=== PATIENT | female | born 1985 | race Caucasian/White ===

== ENCOUNTER 2017-01-30 10:11 | Emergency (ER) | payer OTHER ==
[2017-01-30] MEDS ORDERED: Sodium Chloride 0.9% 10 ML Syringe FLUSH PRN (11:41)
[2017-01-30] MEDS ORDERED: Sodium Chloride 0.9% 1,000 ML IV ONE (11:43)
[2017-01-30] MEDS ORDERED: Acetaminophen 325 MG Tab PO ONE (11:43)
--- NOTE | 2017-01-30 11:56 | EDM.PDOC ---
ED HPI GENERAL MEDICAL PROBLEM - General Chief Complaint: Syncope Stated Complaint: 2 MONTHS PREG PASSED OUT Time Seen by Provider: 01/30/17 11:36 Source of Information: Reports: Patient History Limitations: Reports: No Limitations - History of Present Illness INITIAL COMMENTS - FREE TEXT/NARRATIVE: 31-year-old female presents for evaluation after having 2 syncopal episodes this morning. Patient reports this morning she was feeling very weak. She went downstairs to let out the dogs. She states that she sat down at the dining room table and woke up several minutes later with her head down on the table. She states that she got up and passed out for a second time from a standing position. The leaflets and it lasted about 15 minutes. She states when she woke up at that time she was diaphoretic. Her current symptoms including weakness, fatigue, increased warmth, ear pain, congestion, sore throat and a dry nonproductive cough. Patient has not taken her temperature but states that she feels warm. She states her cold symptoms started on Saturday but this has been the worst so far. She has been drinking plenty of fluids today. She only had a banana each day. The patient is approximately 7 weeks . She is not having major cramping. She reports some left lower abdominal pain described as a dull ache. She denies any vaginal bleeding. She reports some clear vaginal fluid, which she reports as normal for her. She is a . She saw her SMALL BUSINESS SALES REPRESENTATIVE provider about one week ago after having some sharp abdominal and back pain. She has an ultrasound scheduled for February 05. Her SMALL BUSINESS SALES REPRESENTATIVE provider is Dr. Guevara. Generalized Pain Score (Numeric/FACES): 7 - Related Data Allergies Allergy/AdvReac Type Severity Reaction Status Date / Time No Known Allergies Allergy Verified 01/30/17 10:52 Home Meds: Home Meds Docosahexanoic Acid [DHA] 100 mg PO DAILY 01/30/17 [History] Escitalopram [Lexapro] 10 mg PO DAILY 01/30/17 [History] Loratadine [Claritin] 10 mg PO DAILY 01/30/17 [History] Vit with Ca/FA/Iron [ Plus Iron] 1 tab PO DAILY 01/30/17 [ History] Past Medical History HEENT History: Reports: Impaired Vision Other HEENT History: wears eyeglasses Respiratory History: Reports: Bronchitis, Recurrent Genitourinary History: Reports: UTI, Recurrent SMALL BUSINESS SALES REPRESENTATIVE History: Reports: 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 Psychiatric History: Reports: Anxiety Dermatologic History: Reports: Eczema - Infectious Disease History Infectious Disease History: Reports: Chicken Pox Social & Family History - Tobacco Use Smoking Status *Q: Never Smoker Second Hand Smoke Exposure: No - Caffeine Use Caffeine Use: Reports: Coffee, Tea - Recreational Drug Use Recreational Drug Use: No ED ROS GENERAL - Review of Systems Review Of Systems: See Below Constitutional: Reports: Weakness, Fatigue, Diaphoresis. Denies: Fever HEENT: Reports: Other (nasal congestion) Respiratory: Reports: Cough (dry, non productive) GI/Abdominal: Denies: Abdominal Pain, Nausea, Vomiting : Reports: Other (denies any vaginal bleeding; reports vaginal discharge (no change from baseline)). Denies: Dysuria, Hematuria - Physical Exam Exam: See Below Exam Limited By: No Limitations General Appearance: Alert, WD/WN, No Apparent Distress Ears: Normal External Exam, Normal Canal, Hearing Grossly Normal, Normal TMs Throat/Mouth: Normal Inspection, Normal Lips, Normal Voice, No Airway Compromise Neck: Normal Inspection, Supple, Full Range of Motion, Lymphadenopathy (L), Lymphadenopathy (R), Tender Lateral Respiratory/Chest: No Respiratory Distress, Lungs Clear, Normal Breath Sounds Cardiovascular: Normal Peripheral Pulses, Regular Rate, Rhythm, No Murmur GI/Abdominal: Normal Bowel Sounds, Soft, Non-Tender (Female) Exam: Normal External Exam, Normal Speculum Exam, Normal Bimanual Exam, Vaginal Discharge (white, normal vaginal discharge ). No: Cervical Discharge, Products of Conception Neuro Exam (Abbreviated): Alert, Oriented, Normal Cognition Psychiatric: Normal Affect, Normal Mood Skin Exam: Warm, Dry, Normal Color Course - Vital Signs Last Recorded V/S: Last Vital Signs Temp 37.5 C 01/30/17 15:25 Pulse 83 01/30/17 16:00 Resp 18 01/30/17 16:00 BP 115/69 01/30/17 16:00 Pulse Ox 98 01/30/17 16:00 Orthostatic Blood Pressure [ 104/85 Standing] Orthostatic Blood Pressure [ 118/72 Sitting] Orthostatic Blood Pressure [ 121/71 Supine] - Orders/Labs/Meds Orders: Active Orders 24 hr Category Date Time Status Orthostatic Vital Signs [RC] ASDIRECTED Care 01/30/17 11:44 Active Peripheral IV Care [RC] . DIRECTED Care 01/30/17 11:41 Active OB Transvaginal [US] Stat Exams 01/30/17 12:57 Taken CULTURE STREP A CONFIRMATION [RM] Stat Lab 01/30/17 12:45 Results STREP SCRN A RAPID W CULT CONF [RM] Stat Lab 01/30/17 12:45 Results Peripheral IV Insertion Adult [OM.PC] Routine Oth 01/30/17 11:40 Ordered Labs: Laboratory Tests 01/30/17 01/30/17 01/30/17 Range/Units 10:50 10:50 10:50 WBC 7.79 (3.98-10.04) K/mm3 RBC 4.62 (3.98-5.22) M/mm3 Hgb 14.0 (11.2-15.7) gm/L Hct 41.5 (34.1-44.9) % MCV 89.8 (79.4-94.8) fl MCH 30.3 (25.6-32.2) pg MCHC 33.7 (32.2-35.5) g/dl RDW Std Deviation 39.1 (36.4-46.3) fL Plt Count 178 L (182-369) K/mm3 MPV 11.6 (9.4-12.3) fl Neutrophils % (Manual) 80 H (40-60) % Band Neutrophils % 7 (0-10) % Lymphocytes % (Manual) 5 L (20-40) % Atypical Lymphs % 0 % Monocytes % (Manual) 7 (2-10) % Eosinophils % (Manual) 1 (0.7-5.8) % Basophils % (Manual) 0 L (0.1-1.2) Platelet Estimate Adequate RBC Morph Comment Normal Sodium 136 (136-145) mEq/L Potassium 3.4 L (3.5-5.1) mEq/L Chloride 101 (98-107) mEq/L Carbon Dioxide 23 (21-32) mEq/L Anion Gap 15.4 H (5-15) BUN 8 (7-18) mg/dL Creatinine 0.8 (0.55-1.02) mg/dL Est Cr Clr Drug Dosing 116.74 mL/min Estimated GFR (MDRD) > 60 (>60) mL/min BUN/Creatinine Ratio 10.0 L (14-18) Glucose 102 (74-106) mg/dL Calcium 8.4 L (8.5-10.1) mg/dL Total Bilirubin 0.7 (0.2-1.0) mg/dL AST 15 (15-37) U/L ALT 18 (14-59) U/L Alkaline Phosphatase 58 (46-116) U/L C-Reactive Protein 1.3 H* (<1.0) mg/dL Total Protein 7.3 (6.4-8.2) g/dl Albumin 3.5 (3.4-5.0) g/dl Globulin 3.8 gm/dL Albumin/Globulin Ratio 0.9 L (1-2) HCG, Quant 95406.0 mIU/mL Urine Color (Yellow) Urine Appearance (Clear) Urine pH (5.0-8.0) Ur Specific [place] (1.005-1.030) Urine Protein (Negative) Urine Glucose (UA) (Negative) Urine Ketones (Negative) Urine Occult Blood (Negative) Urine Nitrite (Negative) Urine Bilirubin (Negative) Urine Urobilinogen (0.2-1.0) Ur Leukocyte Esterase (Negative) Urine RBC (0-5) /hpf Urine WBC (0-5) /hpf Ur Epithelial Cells (0-5) /hpf Urine Bacteria (FEW) /hpf Urine Mucus (FEW) /hpf /03/11 Range/Units 12:28 WBC (3.98-10.04) K/mm3 RBC (3.98-5.22) M/mm3 Hgb (11.2-15.7) gm/L Hct (34.1-44.9) % MCV (79.4-94.8) fl MCH (25.6-32.2) pg MCHC (32.2-35.5) g/dl RDW Std Deviation (36.4-46.3) fL Plt Count (182-369) K/mm3 MPV (9.4-12.3) fl Neutrophils % (Manual) (40-60) % Band Neutrophils % (0-10) % Lymphocytes % (Manual) (20-40) % Atypical Lymphs % % Monocytes % (Manual) (2-10) % Eosinophils % (Manual) (0.7-5.8) % Basophils % (Manual) (0.1-1.2) Platelet Estimate RBC Morph Comment Sodium (136-145) mEq/L Potassium (3.5-5.1) mEq/L Chloride (98-107) mEq/L Carbon Dioxide (21-32) mEq/L Anion Gap (5-15) BUN (7-18) mg/dL Creatinine (0.55-1.02) mg/dL Est Cr Clr Drug Dosing mL/min Estimated GFR (MDRD) (>60) mL/min BUN/Creatinine Ratio (14-18) Glucose (74-106) mg/dL Calcium (8.5-10.1) mg/dL Total Bilirubin (0.2-1.0) mg/dL AST (15-37) U/L ALT (14-59) U/L Alkaline Phosphatase (46-116) U/L C-Reactive Protein (<1.0) mg/dL Total Protein (6.4-8.2) g/dl Albumin (3.4-5.0) g/dl Globulin gm/dL Albumin/Globulin Ratio (1-2) HCG, Quant mIU/mL Urine Color Yellow (Yellow) Urine Appearance Clear (Clear) Urine pH 7.0 (5.0-8.0) Ur Specific [place] 1.015 (1.005-1.030) Urine Protein Trace H (Negative) Urine Glucose (UA) Negative (Negative) Urine Ketones Trace H (Negative) Urine Occult Blood Negative (Negative) Urine Nitrite Negative (Negative) Urine Bilirubin Negative (Negative) Urine Urobilinogen 0.2 (0.2-1.0) Ur Leukocyte Esterase Negative (Negative) Urine RBC Not seen (0-5) /hpf Urine WBC 0-5 (0-5) /hpf Ur Epithelial Cells 0-5 (0-5) /hpf Urine Bacteria Few (FEW) /hpf Urine Mucus Few (FEW) /hpf Meds: Medications Discontinued Medications Generic Name Dose Route Start Last Admin Trade Name Freq PRN Reason Stop Dose Admin Acetaminophen 650 mg 01/30/17 11:43 01/30/17 12:34 Tylenol PO 01/30/17 11:44 650 mg NOW ONE Administration Sodium Chloride 1,000 mls @ 999 mls/hr 01/30/17 11:43 01/30/17 12:35 Normal Saline IV 01/30/17 12:43 999 mls/hr ONETIME ONE Administration Sodium Chloride 10 ml 01/30/17 11:41 01/30/17 12:36 Saline Flush FLUSH 10 ml ASDIRECTED PRN Administration Keep Vein Open - Radiology Interpretation Free Text/Narrative:: transvaginal ultrasound impression per vrad: 1. single live intrauterine gestation with a gestational age of 6 weeks 4 days on a crown-rump length of 7 mm and an estimated due date of 09-21-17. Estimated due date based on LMP . Size correlates with dates. 2. 2.8 x 2.4 complex area in the right ovary that has peripheral hypervascularity and likely represents a corpuse luteum. - Re-Assessments/Exams Free Text/Narrative Re-Assessment/Exam: 01/30/17 15:24 Labs returned. White blood cell count is 7.79, hemoglobin 14.0 and platelets are 178. Sodium is 126, potassium is 3.4 and chloride is 101. Anion gap is 15.4 and glucose is 102. Creatinine 0.8. AST is 15, aLT is 18 and alkaline phosphatase is 58. CRP is slightly elevated at 1.3. HCG is 50,135. Strep is negative. Flu is needed. wet prep is negative for Trichomonas, yeast and bacterial vaginosis. I reviewed the labs and ultrasound and consult with the patient. We decided to forego a chest x-ray as her lungs were clear on auscultation and she has a normal white blood cell count. I feel she likely has a viral upper respiratory infection. FI feel her syncopal episode was likely caused by her , viral upper respiratory infection and dehydration. We will discharge her home at this time. Discharge instructions as documented. Departure - Departure Time of Disposition: 15:24 Disposition: Home, Self-Care 01 Condition: fair Clinical Impression: Viral upper respiratory infection, Dehydration, - Discharge Information Instructions: Dehydration, Adult, [id number], Upper Respiratory Infection, Adult, [id number] Referrals: Daisy Pérez PA-C [Primary Care Provider] - Casandra Guevara MD [Physician] - Forms: ED Department Discharge Additional Instructions: [id number] medications from the provided list as needed for symptom relief. make sure you are drinking plenty of fluids. Drink at least half of the body and ounces daily. Recommend water and Gatorade or Powerade. Rest. Do not overexert [id number]. Listen to your body. If you are not feeling well, sit down, rest in a cool place. Drink fluids and eat a healthy diet. Follow up with your SMALL BUSINESS SALES REPRESENTATIVE provider in the next one to 2 weeks for recheck. Please return to ER if your symptoms change or worsen. - My Orders Last 24 Hours: My Active Orders 01/30/17 11:40 Peripheral IV Insertion Adult [OM.PC] Routine 01/30/17 11:41 Peripheral IV Care [RC] . DIRECTED 01/30/17 11:44 Orthostatic Vital Signs [RC] ASDIRECTED 01/30/17 12:45 CULTURE STREP A CONFIRMATION [RM] Stat STREP SCRN A RAPID W CULT CONF [RM] Stat 01/30/17 12:57 OB Transvaginal [US] Stat - Assessment/Plan Last 24 Hours: My Active Orders 01/30/17 11:40 Peripheral IV Insertion Adult [OM.PC] Routine 01/30/17 11:41 Peripheral IV Care [RC] . DIRECTED 01/30/17 11:44 Orthostatic Vital Signs [RC] ASDIRECTED 01/30/17 12:45 CULTURE STREP A CONFIRMATION [RM] Stat STREP SCRN A RAPID W CULT CONF [RM] Stat 01/30/17 12:57 OB Transvaginal [US] Stat
[2017-01-30 16:08] VITALS: BP 115/69
--- NOTE | 2017-01-31 09:25 | US ---
First trimester obstetrical ultrasound: Multiple real-time images were obtained transvaginally. Comparison: No previous exam. Dates: LMP: LMP given as 12/13/16, ANN-MARIE 09/19/17, gestational age 6 weeks 6 days Current ultrasound: ANN-MARIE 09/21/17, gestational age 6 weeks 4 days Single intrauterine gestation is seen. pole and yolk sac are identified. Amniotic fluid volume is normal. No subchorionic hemorrhage is identified. Simple cyst noted within the right ovary believed to represent incidental corpus luteum cyst measuring about 3.3 cm. Impression: 1. Single intrauterine gestation. Dates as noted above. 2. No complicating process is seen on ultrasound exam. Agree with preliminary report issued by [employer] (preliminary report dictated on 01/30/17, 4:33 PM Central Time) Diagnostic code #2
== END 2017-01-30 16:00 | disposition home or self-care (01) ==
LOC: JD.ED 10:11
DX: O99.511 Diseases of the respiratory system complicating pregnancy, first trimester (principal); J06.9 Acute upper respiratory infection, unspecified; O99.281 Endocrine, nutritional and metabolic diseases complicating pregnancy, first trimester; E86.0 Dehydration; O99.341 Other mental disorders complicating pregnancy, first trimester; F41.9 Anxiety disorder, unspecified; Z3A.01 Less than 8 weeks gestation of pregnancy; Z79.899 Other long term (current) drug therapy
CPT/HCPCS: 36415; 76817; 80053; 81001; 84702; 85025; 86140; 87081; 87210; 87430; 87804; 87808; 96360; 99284; A9270; J7040; J7050; 99283

== ENCOUNTER 2017-09-12 18:58 | Inpatient (IN) | payer OTHER ==
[2017-09-12] MEDS ORDERED: Lactated Ringers 1,000 ML ONE (19:29)
[2017-09-12] MEDS ORDERED: Sodium Chloride 0.9% 10 ML Syringe FLUSH PRN (19:55)
[2017-09-12] MEDS ORDERED: Ondansetron 4 MG/2 ML SDV IVPUSH PRN (19:55)
[2017-09-12] MEDS: Lactated Ringers 1,000 ML IV SCH (20:00)
[2017-09-12] MEDS ORDERED: Lactated Ringers 1,000 ML IV SCH (20:00)
[2017-09-12] MEDS ORDERED: Oxytocin/Lactated Ringers 10 UNIT/1,000 ML BAG IV SCH (20:00)
[2017-09-12] MEDS ORDERED: fentaNYL 100 MCG/2 ML SDV EPIDUR PRN (22:14)
[2017-09-12] MEDS ORDERED: ePHEDrine 50 MG/ML SDV IVPUSH PRN (22:14)
[2017-09-12] MEDS ORDERED: Bupivacaine/fentaNYL/NS 100 ML Bag EPIDUR SCH (22:15)
--- NOTE | 2017-09-12 22:16 | PCM.PREANE ---
Preanesthetic Assessment - Anesthesia/Transfusion/Family Hx Anesthesia History: No Prior Anesthesia Family History of Anesthesia Reaction: No Transfusion History: No Prior Transfusion(s) Intubation History: Unknown - Review of Systems General: No Symptoms Pulmonary: No Symptoms Cardiovascular: No Symptoms Gastrointestinal: No Symptoms, Nausea Neurological: No Symptoms Other: Reports: Easy Bruising, Sinus Problem, Depression, Anxiety - Physical Assessment NPO Status Date: 09/12/17 NPO Status Time: 18:30 Pulse: 93 O2 Sat by Pulse Oximetry: 96 Respiratory Rate: 22 Blood Pressure: 131/89 Temperature: 37.6 C Height: 1.85 m Weight: 85.275 kg ASA Class: 2 Mental Status: Alert & Oriented x3 Airway Class: Mallampati = 2 Dentition: Reports: Normal Dentition, Caries Thyro-Mental Finger Breadths: 3 Mouth Opening Finger Breadths: 3 ROM/Head Extension: Full Lungs: Clear to Auscultation, Normal Respiratory Effort Cardiovascular: Regular Rate, Regular Rhythm, No Murmurs - Lab Values: Laboratory Last Values WBC 9.01 K/mm3 (3.98-10.04) 09/12/17 20:15 RBC 4.21 M/mm3 (3.98-5.22) 09/12/17 20:15 Hgb 13.2 gm/L (11.2-15.7) 09/12/17 20:15 Hct 38.6 % (34.1-44.9) 09/12/17 20:15 MCV 91.7 fl (79.4-94.8) 09/12/17 20:15 MCH 31.4 pg (25.6-32.2) 09/12/17 20:15 MCHC 34.2 g/dl (32.2-35.5) 09/12/17 20:15 RDW Std Deviation 43.4 fL (36.4-46.3) 09/12/17 20:15 Plt Count 183 K/mm3 (182-369) 09/12/17 20:15 MPV 12.0 fl (9.4-12.3) 09/12/17 20:15 Neut % (Auto) 71.7 % (34.0-71.1) H 09/12/17 20:15 Lymph % (Auto) 20.8 % (19.3-51.7) 09/12/17 20:15 [place] % (Auto) 6.8 % (4.7-12.5) 09/12/17 20:15 Eos % (Auto) 0.2 (0.7-5.8) L 09/12/17 20:15 Baso % (Auto) 0.2 % (0.1-1.2) 09/12/17 20:15 Neut # (Auto) 6.46 K/mm3 (1.56-6.13) H 09/12/17 20:15 Lymph # (Auto) 1.87 K/mm3 (1.18-3.74) 09/12/17 20:15 [place] # (Auto) 0.61 K/mm3 (0.24-0.36) H 09/12/17 20:15 Eos # (Auto) 0.02 K/mm3 (0.04-0.36) L 09/12/17 20:15 Baso # (Auto) 0.02 K/mm3 (0.01-0.08) 09/12/17 20:15 Above labs reviewed and noted. - Allergies Allergies/Adverse Reactions: Allergies Allergy/AdvReac Type Severity Reaction Status Date / Time No Known Allergies Allergy Verified 01/30/17 10:52 - Anesthesia Plan Pre-Op Medication Ordered: None - Acknowledgements Anesthesia Type Planned: Epidural Pt an Appropriate Candidate for the Planned Anesthesia: Yes Alternatives and Risks of Anesthesia Discussed w Pt/Guardian: Yes Pt/Guardian Understands and Agrees with Anesthesia Plan: Yes PreAnesthesia Questionnaire - Past Health History Medical/Surgical History: Denies Medical/Surgical History HEENT History: Reports: Impaired Vision Other HEENT History: wears eyeglasses Respiratory History: Reports: Bronchitis, Recurrent Genitourinary History: Reports: UTI, Recurrent DISABILITY RATER History: Reports: 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 Psychiatric History: Reports: Anxiety Dermatologic History: Reports: Eczema - Infectious Disease History Infectious Disease History: Reports: Chicken Pox - SUBSTANCE USE Smoking Status *Q: Never Smoker Second Hand Smoke Exposure: No Recreational Drug Use History: No - HOME MEDS Home Medications: Home Meds Docosahexanoic Acid [DHA] 100 mg PO DAILY 01/30/17 [History] Escitalopram [Lexapro] 10 mg PO DAILY 01/30/17 [History] Loratadine [Claritin] 10 mg PO DAILY 01/30/17 [History] Vit with Ca/FA/Iron [ Plus Iron] 1 tab PO DAILY 01/30/17 [ History] - CURRENT (IN HOUSE) MEDS Current Meds: Current Medications Lactated Ringer's (Ringers, Lactated) 1,000 mls @ 100 mls/hr IV ASDIRECTED NINOSKA Oxytocin/Lactated Ringer's (Pitocin In Lr 10 Units/1,000 Ml) 10 unit in 1,000 mls @ 500 mls/hr IV .CONTINUOUS NINOSKA Ondansetron HCl (Zofran) 4 mg IVPUSH Q4H PRN PRN Reason: Nausea/Vomiting Sodium Chloride (Saline Flush) 10 ml FLUSH ASDIRECTED PRN PRN Reason: Keep Vein Open Discontinued Medications Lactated Ringer's (Ringers, Lactated) Confirm Administered Dose 1,000 mls @ as directed .ROUTE .STK-MED ONE Stop: 09/12/17 19:30
[2017-09-13] MEDS ORDERED: Bupivacaine 0.25% 10 ML SDV ONE (02:00)
[2017-09-13] MEDS ORDERED: Metoclopramide 10 MG/2 ML SDV IVPUSH ONE (03:15)
[2017-09-13] MEDS ORDERED: Citric Acid/Sodium Citrate Solution 30 ML Cup PO ONE (03:15)
[2017-09-13] MEDS ORDERED: Sodium Chloride 0.9% 10 ML Syringe FLUSH PRN (03:15)
--- NOTE | 2017-09-13 03:15 | PCM.HP ---
H&P History of Present Illness - General Date of Service: 09/13/17 Admit Problem/Dx: Admission Diagnosis/Problem Admission Diagnosis/Problem Source of Information: Patient History Limitations: Reports: No Limitations - History of Present Illness Initial Comments - Free Text/Narative: 31 year old at 39 weeks here with SROM. Desires epidural. Painful contractions Improves with: Reports: None Worsens with: Reports: None Associated Symptoms: Reports: No Other Symptoms - Related Data Allergies/Adverse Reactions: Allergies Allergy/AdvReac Type Severity Reaction Status Date / Time No Known Allergies Allergy Verified 01/30/17 10:52 Home Medications: Home Meds Docosahexanoic Acid [DHA] 100 mg PO DAILY 01/30/17 [History] Escitalopram [Lexapro] 10 mg PO DAILY 01/30/17 [History] Loratadine [Claritin] 10 mg PO DAILY 01/30/17 [History] Vit with Ca/FA/Iron [ Plus Iron] 1 tab PO DAILY 01/30/17 [ History] Past Medical History - Past Health History Medical/Surgical History: Denies Medical/Surgical History HEENT History: Reports: Impaired Vision Other HEENT History: wears eyeglasses Respiratory History: Reports: Bronchitis, Recurrent Genitourinary History: Reports: UTI, Recurrent 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 Psychiatric History: Reports: Anxiety Dermatologic History: Reports: Eczema - Infectious Disease History Infectious Disease History: Reports: Chicken Pox Social & Family History - Family History Family Medical History: Noncontributory - Tobacco Use Smoking Status *Q: Never Smoker Second Hand Smoke Exposure: No - Caffeine Use Caffeine Use: Reports: None - Recreational Drug Use Recreational Drug Use: No H&P Review of Systems - Review of Systems: Review Of Systems: See Below General: Reports: No Symptoms HEENT: Reports: No Symptoms Pulmonary: Reports: No Symptoms Cardiovascular: Reports: No Symptoms Gastrointestinal: Reports: No Symptoms Genitourinary: Reports: No Symptoms Musculoskeletal: Reports: No Symptoms Skin: Reports: No Symptoms Psychiatric: Reports: No Symptoms Neurological: Reports: No Symptoms Hematologic/Lymphatic: Reports: No Symptoms Immunologic: Reports: No Symptoms Exam - Exam Exam: See Below - Vital Signs Vital Signs: Last Vital Signs Temp 37.6 C 09/12/17 22:31 Pulse 93 01/18/18 22:31 Resp 22 H 09/12/17 22:31 BP 131/89 09/12/17 22:31 Pulse Ox 96 09/12/17 22:31 Weight: 85.275 kg - Exam General: Alert, Oriented, 4 HEENT: PERRLA, Hearing Intact, Mucosa Moist & [place], Nares Patent, Normal Nasal Septum, Posterior Pharynx Clear, Conjunctiva Clear, EOMI, EACs Clear, TMs Clear Neck: Supple, Trachea Midline, 2 Lungs: Clear to Auscultation, Normal Respiratory Effort Cardiovascular: Regular Rate, Regular Rhythm GI/Abdominal Exam: Normal Bowel Sounds, Soft, Non-Tender, No Organomegaly, No Distention, No Abnormal Bruit, No Mass, Pelvis Stable Rectal (Female) Exam: Normal Exam, Normal Rectal Tone Back Exam: Normal Inspection, Full Range of Motion, NT Extremities: Normal Inspection, Normal Range of Motion, Non-Tender, No Pedal Edema, Normal Capillary Refill Skin: Warm, Dry, Intact Neurological: Cranial Nerves Intact, Reflexes Equal Bilateral Neuro Extensive - Mental Status: Alert, Oriented x3, Normal Mood/Affect, Normal Cognition Neuro Extensive - Motor, Sensory, Reflexes: CN II-XII Intact, Normal Gait, Normal Reflexes Psychiatric: Alert, Normal Affect, Normal Mood - Patient Data Lab Results Last 24 hrs: Laboratory Results - last 24 hr 09/12/17 Range/Units 20:15 WBC 9.01 (3.98-10.04) K/mm3 RBC 4.21 (3.98-5.22) M/mm3 Hgb 13.2 (11.2-15.7) gm/L Hct 38.6 (34.1-44.9) % MCV 91.7 (79.4-94.8) fl MCH 31.4 (25.6-32.2) pg MCHC 34.2 (32.2-35.5) g/dl RDW Std Deviation 43.4 (36.4-46.3) fL Plt Count 183 (182-369) K/mm3 MPV 12.0 (9.4-12.3) fl Neut % (Auto) 71.7 H (34.0-71.1) % Lymph % (Auto) 20.8 (19.3-51.7) % [place] % (Auto) 6.8 (4.7-12.5) % Eos % (Auto) 0.2 L (0.7-5.8) Baso % (Auto) 0.2 (0.1-1.2) % Neut # (Auto) 6.46 H (1.56-6.13) K/mm3 Lymph # (Auto) 1.87 (1.18-3.74) K/mm3 [place] # (Auto) 0.61 H (0.24-0.36) K/mm3 Eos # (Auto) 0.02 L (0.04-0.36) K/mm3 Baso # (Auto) 0.02 (0.01-0.08) K/mm3 Result Diagrams: 09/12/17 20:15 *Q Meaningful Use (ADM) - VTE *Q VTE Criteria *Q: - Stroke *Q Stroke Criteria *Q: - AMI *Q AMI Criteria *Q: Problem List Initiated/Reviewed/Updated: Yes Orders Last 24hrs: Active Orders 24 hr Category Date Time Status Patient Status [ADT] Routine ADT 09/12/17 19:05 Active Activity as Tolerated [RC] PFP Care 09/12/17 19:55 Active Communication Order [RC] ASDIRECTED Care 09/12/17 19:55 Active Heart Tones [RC] ASDIRECTED Care 09/12/17 19:56 Active Notify Provider [RC] ASDIRECTED Care 09/12/17 22:14 Active Notify Provider [RC] PFP Care 09/12/17 19:55 Active Notify Provider [RC] PRN Care 09/12/17 19:55 Active Oxygen Therapy [RC] ASDIRECTED Care 09/12/17 22:14 Active Peripheral IV Care [RC] . DIRECTED Care 09/12/17 19:56 Active Pulse Oximetry [RC] ASDIRECTED Care 09/12/17 22:14 Active Vital Signs [RC] PER UNIT ROUTINE Care 09/12/17 19:55 Active Regular Diet [DIET] Diet 09/12/17 Dinner Active Bupivacaine/fentaNYL/NS [fentaNYL/Bupivacaine/NS 2 MCG- Med 09/12/17 22:15 Active 0.125% 100 ML] 100 ml EPIDUR ASDIRECTED Lactated Ringers [Ringers, Lactated] 1,000 ml Med 09/12/17 20:00 Active IV ASDIRECTED Ondansetron [Zofran] Med 09/12/17 19:55 Active 4 mg IVPUSH Q4H PRN Oxytocin/Lactated Ringers [Pitocin in LR 10 Units/1,000 Med 09/12/17 20:00 Active ML] 10 unit in 1,000 ml IV .CONTINUOUS Sodium Chloride 0.9% [Saline Flush] Med 09/12/17 19:55 Active 10 ml FLUSH ASDIRECTED PRN ePHEDrine [ePHEDrine Sulfate] Med 09/12/17 22:14 Active 5 mg IVPUSH ASDIRECTED PRN fentaNYL [Sublimaze] Med 09/12/17 22:14 Active 100 mcg EPIDUR Q3H PRN Electronic Heart Tones Ext w TOCO [WOMSER] Oth 09/12/17 19:55 Ordered Routine Electronic Heart Tones Internal [WOMSER] Per Unit Oth 09/12/17 19:55 Ordered Routine Peripheral IV Insertion Adult [OM.PC] Routine Oth 09/12/17 19:55 Ordered Resuscitation Status Routine Resus Stat 09/12/17 19:55 Ordered Medication Orders Ephedrine Sulfate (Ephedrine Sulfate) 5 mg IVPUSH ASDIRECTED PRN PRN Reason: Hypotension Fentanyl (Sublimaze) 100 mcg EPIDUR Q3H PRN PRN Reason: Pain Fentanyl/Bupivacaine HCl (Fentanyl/Bupivacaine/Ns 2 Mcg-0.125% 100 Ml) 100 ml EPIDUR ASDIRECTED NINOSKA Lactated Ringer's (Ringers, Lactated) 1,000 mls @ 100 mls/hr IV ASDIRECTED NINOSKA Oxytocin/Lactated Ringer's (Pitocin In Lr 10 Units/1,000 Ml) 10 unit in 1,000 mls @ 500 mls/hr IV .CONTINUOUS NINOSKA Ondansetron HCl (Zofran) 4 mg IVPUSH Q4H PRN PRN Reason: Nausea/Vomiting Sodium Chloride (Saline Flush) 10 ml FLUSH ASDIRECTED PRN PRN Reason: Keep Vein Open Assessment/Plan Comment:: Term labor/SROM Anticipate unless otherwise indicated
[2017-09-13] MEDS ORDERED: Bupivacaine 0.5% 30 ML SDV ONE (03:20)
--- NOTE | 2017-09-13 03:20 | PCM.PNLD ---
Labor Progress Note - VS & Meds Vital Signs: Last Vital Signs Temp 37.6 C 09/12/17 22:31 Pulse 93 09/12/17 22:31 Resp 22 H 09/12/17 22:31 BP 131/89 09/12/17 22:31 Pulse Ox 96 09/12/17 22:31 Active Medications: Current Medications Citric Acid/Sodium Citrate (Bicitra Solution) 30 ml PO ONETIME ONE Stop: 09/13/17 03:16 Ephedrine Sulfate (Ephedrine Sulfate) 5 mg IVPUSH ASDIRECTED PRN PRN Reason: Hypotension Fentanyl (Sublimaze) 100 mcg EPIDUR Q3H PRN PRN Reason: Pain Fentanyl/Bupivacaine HCl (Fentanyl/Bupivacaine/Ns 2 Mcg-0.125% 100 Ml) 100 ml EPIDUR ASDIRECTED NINOSKA Lactated Ringer's (Ringers, Lactated) 1,000 mls @ 100 mls/hr IV ASDIRECTED NINOSKA Oxytocin/Lactated Ringer's (Pitocin In Lr 10 Units/1,000 Ml) 10 unit in 1,000 mls @ 500 mls/hr IV .CONTINUOUS NINOSKA Lactated Ringer's (Ringers, Lactated) 1,000 mls @ 125 mls/hr IV ASDIRECTED NINOSKA Metoclopramide HCl (Reglan) 10 mg IVPUSH ONETIME ONE Stop: 09/13/17 03:16 Ondansetron HCl (Zofran) 4 mg IVPUSH Q4H PRN PRN Reason: Nausea/Vomiting Sodium Chloride (Saline Flush) 10 ml FLUSH ASDIRECTED PRN PRN Reason: Keep Vein Open Sodium Chloride (Saline Flush) 10 ml FLUSH ASDIRECTED PRN PRN Reason: Keep Vein Open Discontinued Medications Lactated Ringer's (Ringers, Lactated) Confirm Administered Dose 1,000 mls @ as directed .ROUTE .STK-MED ONE Stop: 09/12/17 19:30 - Uterine Contractions Uterine Monitoring Mode: External [place] Contraction Intensity: Moderate to Strong Uterine Resting Tone: Soft - Monitoring Monitor Mode: External Ultrasound Heart Rate (FHR) Baseline: 140 Heart Rate (FHR) Variability: Moderate (6-25 bmp) Accelerations: Present, 15x15 Decelerations: Variable Strip Review: Category I - Vaginal Exam Station: 1 - Labor Progress (Free Text) Labor Progress: PUshing since :30. Progress initially but now minimal descent. Trial of vacuum without further desent x 2 pulls with one contraction. Discussed options and decision made to proceed with section.
[2017-09-13] MEDS ORDERED: Morphine PF 1 MG/ML Amp ONE (03:24)
[2017-09-13] MEDS ORDERED: Phenylephrine 1% 10 MG/ML SDV ONE (03:46)
[2017-09-13] MEDS ORDERED: ceFAZolin 1 GM Vial ONE (03:46)
[2017-09-13] MEDS ORDERED: Ondansetron 4 MG/2 ML SDV ONE (03:46)
[2017-09-13] MEDS ORDERED: Lidocaine 2% with EPINEPHrine 1:200,000 20 ML SDV ONE (03:46)
[2017-09-13] MEDS ORDERED: Ketorolac 30 MG/ML SDV ONE (03:46)
[2017-09-13] MEDS ORDERED: Lactated Ringers 1,000 ML ONE ×2 (03:46→05:00)
[2017-09-13] MEDS ORDERED: Oxytocin 10 Units/1 ML SDV ONE (03:46)
[2017-09-13] MEDS ORDERED: fentaNYL 100 MCG/2 ML SDV ONE (03:46)
[2017-09-13] MEDS ORDERED: Meperidine PF 50 MG/ML Syringe IVPUSH PRN (04:16)
[2017-09-13] MEDS ORDERED: diphenhydrAMINE 50 MG/ML SDV IVPUSH PRN ×2 (04:16→06:06)
[2017-09-13] MEDS ORDERED: Ondansetron 4 MG/2 ML SDV IVPUSH PRN (04:16)
[2017-09-13] MEDS ORDERED: fentaNYL 100 MCG/2 ML SDV IVPUSH PRN (04:16)
[2017-09-13] MEDS ORDERED: Phenylephrine 1 MG in Sodium Chloride 0.9% 10 ML IV SCH (04:30)
[2017-09-13] MEDS ORDERED: Phenylephrine/Normal Saline 100 MCG/ML 10 ML Syringe ONE (04:52)
[2017-09-13] MEDS ORDERED: Meperidine PF 50 MG/ML Syringe ONE (04:54)
[2017-09-13] MEDS ORDERED: ePHEDrine/Normal Saline 25 MG/5 ML Syringe ONE (04:55)
--- NOTE | 2017-09-13 05:28 | PCM.POSTAN ---
POST ANESTHESIA ASSESSMENT - MENTAL STATUS Mental Status: Alert - VITAL SIGNS Pulse Rate: 110 SaO2: 97 Resp Rate: 15 Blood Pressure: 132/80 Temperature: 37.5 C - RESPIRATORY Respiratory Status: Respiratory Rate WNL, Airway Patent, O2 Saturation Stable - CARDIOVASCULAR CV Status: Pulse Rate WNL, Blood Pressure Stable - GASTROINTESTINAL GI Status: No Symptoms - POST OP HYDRATION Hydration Status: Adequate & Stable
--- NOTE | 2017-09-13 05:36 | PCM.OPNOTE ---
- General Post-Op/Procedure Note Date of Surgery/Procedure: 09/13/17 Operative Procedure(s): primary section Findings: Viable male, vertex, weight 7#3oz, APGARS 1/8, normal uterus tubes and ovaries Pre Op Diagnosis: failure to descend Post-Op Diagnosis: Same Anesthesia Technique: Spinal Primary Surgeon: Casandra Guevara Secondary Surgeon: Jazmin Bynum Reason Crime Scene Examiner Was Necessary: retraction, patient safety Fluid Replacement, Intraop: 1,900 Output, Urine Amount: 100 EBL in mLs: 1,000 Complications: None Condition: Good Free Text/Narrative:: The patient was taken to the operating room where epidural anesthesia was dosed to surgical levels without difficulty. The patient was prepped and draped in the usual sterile fashion in the dorsal supine position with a leftward tilt. A Pfannenstiel skin incision was made with the scalpel and carried through to the underlying layer of fascia. The fascia was incised in the midline and extended laterally using Aguayo scissors. Frances clamps were used to elevate the superior aspect of the fascial incision, which was elevated, and the underlying rectus muscles were dissected off bluntly and using Aguayo scissors. Attention was then turned to the inferior aspect of the fascial incision, which in similar fashion was grasped with Frances clamps, elevated, and the underlying rectus muscles were dissected off bluntly and using the aguayo. The rectus muscles were dissected in the midline. The peritoneum was entered bluntly; this incision was extended superiorly and inferiorly with good visualization of the bladder. The bladder blade was inserted. The vesicouterine peritoneum was identified and entered sharply using Metzenbaum scissors. This incision was extended laterally and the bladder flap was created digitally. The bladder blade was reinserted. The lower uterine segment was incised in a transverse fashion using the scalpel and with digital traction. Clear fluid was noted. Attempt was made at delivery by flexing the head to the incision. There was significant asynclitism. After attempt a T was cut in the uterus at the midline of the incision. Feet were grasped and baby delivered in breech fashion. The cord was clamped and cut. The was subsequently handed to the awaiting java xml developer whose presence had been requested.. The placenta was delivered spontaneously intact with a three-vessel cord noted. The uterus was exteriorized and cleared of all clots and debris. The uterine incision was repaired in 2 layers using 0 monocryl. Hemostasis was visualized. Hemostasis was visualized bilaterally. The uterus was returned to the abdomen. The uterine incision was reexamined and it was noted to be hemostatic. The pelvis was copiously irrigated. The fascia was closed with 1 PDS suture, and the skin was closed with 3-0 monocryl. Sponge, lap, and instrument counts were correct x2. The patient was stable at the completion of the procedure and was subsequently transferred to the recovery room in stable condition.
[2017-09-13] MEDS ORDERED: Naloxone 0.4 MG/ML SDV IVPUSH PRN (06:06)
[2017-09-13] MEDS ORDERED: Dextrose 5%-Lactated Ringers 1,000 ML IV SCH (06:06)
[2017-09-13] MEDS ORDERED: Hydrocortisone Acetate 25 MG Supp RECTAL PRN (06:06)
[2017-09-13] MEDS ORDERED: Lanolin 100% Cream 7 GM Tube TOP PRN (06:06)
[2017-09-13] MEDS ORDERED: ePHEDrine 50 MG/ML SDV IVPUSH PRN (06:06)
[2017-09-13] MEDS ORDERED: Witch Hazel Medicated Pads 100/Jar TOP PRN (06:06)
[2017-09-13] MEDS: Lactated Ringers 1,000 ML IV SCH ×3 (07:44→07:49)
[2017-09-13] MEDS: Docusate Sodium 100 MG Cap PO PRN (08:35)
[2017-09-13] MEDS: Ketorolac 30 MG/ML SDV IVPUSH SCH ×3 (10:44→22:44)
[2017-09-13] MEDS: Acetaminophen/oxyCODONE 325-5 MG Tab PO PRN ×2 (16:20→21:36)
--- NOTE | 2017-09-13 19:14 | PCM48HPAN ---
Post Anesthesia Note - EVALUATION WITHIN 48HRS OF ANESTHETIC Vital Signs in Normal Range: Yes Patient Participated in Evaluation: Yes Respiratory Function Stable: Yes Airway Patent: Yes Cardiovascular Function Stable: Yes Hydration Status Stable: Yes Pain Control Satisfactory: Yes Nausea and Vomiting Control Satisfactory: Yes Mental Status Recovered: Yes
[2017-09-13] MEDS: LORazepam 1 MG Tab PO PRN (22:42)
[2017-09-14] MEDS: Acetaminophen/oxyCODONE 325-5 MG Tab PO PRN ×4 (03:22→21:01)
[2017-09-14] MEDS: Ibuprofen 600 MG Tab PO PRN ×4 (06:40→23:52)
[2017-09-14] MEDS: LORazepam 1 MG Tab PO PRN ×2 (06:51→21:39)
[2017-09-14] MEDS: Docusate Sodium 100 MG Cap PO PRN ×2 (09:02→21:00)
--- NOTE | 2017-09-14 09:04 | PCM.SN ---
- Free Text/Narrative Note: Post Operative Progress Note POD # 1 Subjective: Doing well overall but having some increased anxiety and crying episodes. Ambulating without difficulty. Lochia minimal. Fregoso catheter removed and voiding without difficulty. Not passing flatus. Tolerating regular diet without nausea or vomiting. Pain controlled with oral medications. Breast feeding with minimal difficulty. Objective: Vitals: Vital Signs - 24 hr 09/13/17 09/13/17 09/13/17 09:57 10:59 12:12 Temperature 35.7 C Temperature [ Temporal] Pulse, 89 Peripheral Pulse, 86 Peripheral [ Apical] Respiratory 16 16 18 Rate Blood Pressure 123/72 Blood Pressure [Left Upper Arm ] O2 Sat by Pulse 98 99 Oximetry 09/13/17 09/13/17 09/13/17 12:13 13:00 14:00 Temperature Temperature [ Temporal] Pulse, 90 Peripheral Pulse, Peripheral [ Apical] Respiratory 15 16 Rate Blood Pressure Blood Pressure [Left Upper Arm ] O2 Sat by Pulse 99 Oximetry 09/13/17 09/13/17 09/13/17 15:00 16:00 16:26 Temperature Temperature [ 36.6 C Temporal] Pulse, 86 Peripheral Pulse, Peripheral [ Apical] Respiratory 18 17 Rate Blood Pressure 126/78 Blood Pressure [Left Upper Arm ] O2 Sat by Pulse 98 Oximetry 09/13/17 09/13/17 09/13/17 17:00 18:00 19:00 Temperature Temperature [ Temporal] Pulse, Peripheral Pulse, Peripheral [ Apical] Respiratory 17 16 17 Rate Blood Pressure Blood Pressure [Left Upper Arm ] O2 Sat by Pulse 98 97 98 Oximetry 09/13/17 09/13/17 09/13/17 20:00 21:00 22:00 Temperature Temperature [ 36.6 C Temporal] Pulse, 79 Peripheral Pulse, 69 Peripheral [ Apical] Respiratory 18 18 20 Rate Blood Pressure 117/71 Blood Pressure 117/71 [Left Upper Arm ] O2 Sat by Pulse 95 97 98 Oximetry 09/13/17 09/14/17 09/14/17 23:00 00:00 01:00 Temperature Temperature [ Temporal] Pulse, Peripheral Pulse, Peripheral [ Apical] Respiratory 20 18 16 Rate Blood Pressure Blood Pressure [Left Upper Arm ] O2 Sat by Pulse 97 98 99 Oximetry 09/14/17 09/14/17 09/14/17 02:00 03:00 03:16 Temperature Temperature [ Temporal] Pulse, 74 Peripheral Pulse, Peripheral [ Apical] Respiratory 16 18 Rate Blood Pressure 110/75 Blood Pressure [Left Upper Arm ] O2 Sat by Pulse 98 99 98 Oximetry 09/14/17 09/14/17 03:17 03:48 Temperature Temperature [ 36.6 C Temporal] Pulse, 74 Peripheral Pulse, 82 Peripheral [ Apical] Respiratory 16 Rate Blood Pressure 110/75 Blood Pressure 110/75 [Left Upper Arm ] O2 Sat by Pulse 98 Oximetry Physical Exam General: Alert and oriented, no acute distress Lungs: Clear to auscultation bilaterally Heart: Regular rate and rhythm Abdomen: Soft, minimal appropriate tenderness, non-distended, fundus midline, nontender and below the umbilicus Incision: Clean, dry and intact, no erythema, bleeding or drainage, Steri- Strips in place Extremities: No edema Labs: Laboratory Tests 09/12/17 09/12/17 09/13/17 Range/Units 20:15 20:15 04:33 WBC 9.01 (3.98-10.04) K/mm3 RBC 4.21 (3.98-5.22) M/mm3 Hgb 13.2 (11.2-15.7) gm/L Hct 38.6 (34.1-44.9) % MCV 91.7 (79.4-94.8) fl MCH 31.4 (25.6-32.2) pg MCHC 34.2 (32.2-35.5) g/dl RDW Std Deviation 43.4 (36.4-46.3) fL Plt Count 183 (182-369) K/mm3 MPV 12.0 (9.4-12.3) fl Neut % (Auto) 71.7 H (34.0-71.1) % Lymph % (Auto) 20.8 (19.3-51.7) % Ness % (Auto) 6.8 (4.7-12.5) % Eos % (Auto) 0.2 L (0.7-5.8) Baso % (Auto) 0.2 (0.1-1.2) % Neut # (Auto) 6.46 H (1.56-6.13) K/mm3 Lymph # (Auto) 1.87 (1.18-3.74) K/mm3 Ness # (Auto) 0.61 H (0.24-0.36) K/mm3 Eos # (Auto) 0.02 L (0.04-0.36) K/mm3 Baso # (Auto) 0.02 (0.01-0.08) K/mm3 Cord VBG pH 7.27 L (7.28-7.40) Cord VBG pCO2 46.7 H (32.8-38.6) Cord VBG pO2 28 (28-32) Cord VBG HCO3 20.7 (19-24) Cord VBG Base Excess -5.9 L (-4.4-0.4) Blood Type A POSITIVE Gel Antibody Screen Negative 09/14/17 Range/Units 06:45 WBC 12.25 H (3.98-10.04) K/mm3 RBC 3.30 L (3.98-5.22) M/mm3 Hgb 10.2 L (11.2-15.7) gm/L Hct 31.2 L (34.1-44.9) % MCV 94.5 (79.4-94.8) fl MCH 30.9 (25.6-32.2) pg MCHC 32.7 (32.2-35.5) g/dl RDW Std Deviation 43.6 (36.4-46.3) fL Plt Count 146 L (182-369) K/mm3 MPV 11.3 (9.4-12.3) fl Neut % (Auto) 81.4 H (34.0-71.1) % Lymph % (Auto) 11.8 L (19.3-51.7) % Ness % (Auto) 6.0 (4.7-12.5) % Eos % (Auto) 0.3 L (0.7-5.8) Baso % (Auto) 0.2 (0.1-1.2) % Neut # (Auto) 9.97 H (1.56-6.13) K/mm3 Lymph # (Auto) 1.45 (1.18-3.74) K/mm3 Ness # (Auto) 0.73 H (0.24-0.36) K/mm3 Eos # (Auto) 0.04 (0.04-0.36) K/mm3 Baso # (Auto) 0.02 (0.01-0.08) K/mm3 Cord VBG pH (7.28-7.40) Cord VBG pCO2 (32.8-38.6) Cord VBG pO2 (28-32) Cord VBG HCO3 (19-24) Cord VBG Base Excess (-4.4-0.4) Blood Type Gel Antibody Screen ASSESSMENT: 31-year-old female G 1 P 1001 s/p primary section POD #1 for arrest of descent, complicated by history of anxiety and depression, T-incision during section necessitating no trial of labor in future pregnancies PLAN: Doing well Breast feeding with minimal difficulty. Assist as needed Incision healing well. Continue to keep clean and dry. Lochia minimal. Continue to monitor for appropriate lochia. Continue routine post-operative care Patient to restart her Lexapro 10 mg daily and she was taking this prior to delivery, but missed dosing for the last several days. Last evening she was given dose of Ativan 1 mg due to increased anxiety. Anticipate discharge home tomorrow Darian Sheehan MD 9:03 AM 09/14/2017
[2017-09-14] MEDS: ESCITALOPRAM 10 MG PO SCH (10:52)
[2017-09-15] MEDS: Acetaminophen/oxyCODONE 325-5 MG Tab PO PRN ×4 (03:02→21:32)
[2017-09-15] MEDS: Ibuprofen 600 MG Tab PO PRN ×3 (06:04→18:24)
[2017-09-15] MEDS: ESCITALOPRAM 10 MG PO SCH (08:17)
--- NOTE | 2017-09-15 08:54 | PCM.SN ---
- Free Text/Narrative Note: Post Operative Progress Note POD # 2 Subjective: Doing well overall. Continues to have some increased anxiety and several crying episodes yesterday. Started taking Lexapro yesterday. Ambulating without difficulty. Lochia minimal. Voiding without difficulty. Passing flatus. Tolerating regular diet without nausea or vomiting. Pain controlled with oral medications. Breast feeding with minimal difficulty. Objective: Vitals: Vital Signs - 24 hr 09/14/17 09/14/17 09/14/17 11:56 20:00 20:12 Temperature 36.3 C Temperature [ 36.6 C Temporal] Pulse, 64 85 Peripheral Respiratory 15 18 Rate Blood Pressure 110/70 132/65 O2 Sat by Pulse 93 L 99 Oximetry 09/15/17 09/15/17 04:00 04:22 Temperature Temperature [ 36.6 C Temporal] Pulse, 74 Peripheral Respiratory 18 Rate Blood Pressure 114/63 O2 Sat by Pulse 98 Oximetry Physical Exam General: Alert and oriented, no acute distress Lungs: Clear to auscultation bilaterally Heart: Regular rate and rhythm Abdomen: Soft, minimal appropriate tenderness, non-distended, fundus midline, nontender and below the umbilicus Incision: Clean, dry and intact, no erythema, bleeding or drainage, Steri- Strips in place Extremities: Trace bilateral lower extremity edema to knees Labs: Laboratory Tests 09/12/17 09/12/17 09/13/17 Range/Units 20:15 20:15 04:33 WBC 9.01 (3.98-10.04) K/mm3 RBC 4.21 (3.98-5.22) M/mm3 Hgb 13.2 (11.2-15.7) gm/L Hct 38.6 (34.1-44.9) % MCV 91.7 (79.4-94.8) fl MCH 31.4 (25.6-32.2) pg MCHC 34.2 (32.2-35.5) g/dl RDW Std Deviation 43.4 (36.4-46.3) fL Plt Count 183 (182-369) K/mm3 MPV 12.0 (9.4-12.3) fl Neut % (Auto) 71.7 H (34.0-71.1) % Lymph % (Auto) 20.8 (19.3-51.7) % Whitman % (Auto) 6.8 (4.7-12.5) % Eos % (Auto) 0.2 L (0.7-5.8) Baso % (Auto) 0.2 (0.1-1.2) % Neut # (Auto) 6.46 H (1.56-6.13) K/mm3 Lymph # (Auto) 1.87 (1.18-3.74) K/mm3 Whitman # (Auto) 0.61 H (0.24-0.36) K/mm3 Eos # (Auto) 0.02 L (0.04-0.36) K/mm3 Baso # (Auto) 0.02 (0.01-0.08) K/mm3 Cord VBG pH 7.27 L (7.28-7.40) Cord VBG pCO2 46.7 H (32.8-38.6) Cord VBG pO2 28 (28-32) Cord VBG HCO3 20.7 (19-24) Cord VBG Base Excess -5.9 L (-4.4-0.4) Blood Type A POSITIVE Gel Antibody Screen Negative 09/14/17 Range/Units 06:45 WBC 12.25 H (3.98-10.04) K/mm3 RBC 3.30 L (3.98-5.22) M/mm3 Hgb 10.2 L (11.2-15.7) gm/L Hct 31.2 L (34.1-44.9) % MCV 94.5 (79.4-94.8) fl MCH 30.9 (25.6-32.2) pg MCHC 32.7 (32.2-35.5) g/dl RDW Std Deviation 43.6 (36.4-46.3) fL Plt Count 146 L (182-369) K/mm3 MPV 11.3 (9.4-12.3) fl Neut % (Auto) 81.4 H (34.0-71.1) % Lymph % (Auto) 11.8 L (19.3-51.7) % Whitman % (Auto) 6.0 (4.7-12.5) % Eos % (Auto) 0.3 L (0.7-5.8) Baso % (Auto) 0.2 (0.1-1.2) % Neut # (Auto) 9.97 H (1.56-6.13) K/mm3 Lymph # (Auto) 1.45 (1.18-3.74) K/mm3 Whitman # (Auto) 0.73 H (0.24-0.36) K/mm3 Eos # (Auto) 0.04 (0.04-0.36) K/mm3 Baso # (Auto) 0.02 (0.01-0.08) K/mm3 Cord VBG pH (7.28-7.40) Cord VBG pCO2 (32.8-38.6) Cord VBG pO2 (28-32) Cord VBG HCO3 (19-24) Cord VBG Base Excess (-4.4-0.4) Blood Type Gel Antibody Screen ASSESSMENT: 31-year-old female G 1 P 1001 s/p primary section POD #2 for arrest of descent, complicated by history of anxiety and depression, T-incision during section necessitating no trial of labor in future pregnancies PLAN: Doing well Breast feeding with minimal difficulty. Assist as needed Incision healing well. Continue to keep clean and dry. Lochia minimal. Continue to monitor for appropriate lochia. Continue routine post-operative care Continue Lexapro 10 mg daily for anxiety and depression. Patient was continued anxiety and several depressive episodes yesterday and does not feel safe with discharge today. Anticipate discharge home tomorrow Darian Sheehan MD 8:51 AM 09/15/2017
[2017-09-15] MEDS: Docusate Sodium 100 MG Cap PO PRN (13:37)
[2017-09-16] MEDS: Ibuprofen 600 MG Tab PO PRN ×2 (00:27→08:55)
[2017-09-16] MEDS: Acetaminophen/oxyCODONE 325-5 MG Tab PO PRN (04:12)
--- NOTE | 2017-09-16 08:44 | PCM.DCSUM1 ---
Discharge Summary - Hospital Course Brief History: Admitted with SROM, progessed to complete, pushed 4 hours with minimal progress. Trial of vacuum over one contraction. Decision for . - Discharge Data Discharge Date: 09/16/17 Discharge Disposition: Home, Self-Care 01 Condition: Good - Patient Summary/Data Operative Procedure(s) Performed: primary section - T incision Hospital Course: Some anxiety but otherwise no complications - Patient Instructions Diet: Heart Healthy Diet Activity: No Lifting Over 20 Pounds, No Strenuous Activities Activity, Other: pelvic rest Driving: Do Not Drive Driving, Other: as long as requiring pain med Showering/Bathing: December Shower Wound/Incision Care: Keep Operative Site/Wound Site Clean and Dry Notify Provider of: Fever, Increased Pain, Swelling and Redness, Drainage, Nausea and/or Vomiting - Discharge Plan Home Medications: Home Meds Docosahexanoic Acid [DHA] 100 mg PO DAILY 01/30/17 [History] Escitalopram [Lexapro] 10 mg PO DAILY 01/30/17 [History] Loratadine [Claritin] 10 mg PO DAILY 01/30/17 [History] Vit with Ca/FA/Iron [ Plus Iron] 1 tab PO DAILY 01/30/17 [ History] Referrals: Casandra Guevara MD [Primary Care Provider] - (2 weeks) - Discharge Summary/Plan Comment DC Time >30 min.: No - Patient Data Vitals - Most Recent: Last Vital Signs Temp 36.4 C 09/16/17 04:05 Pulse 64 09/16/17 04:06 Resp 14 09/16/17 04:05 BP 120/79 09/16/17 04:05 Pulse Ox 100 09/16/17 04:06 Weight - Most Recent: 85.275 kg I&O - Last 24 hours: Intake & Output 09/15/17 09/16/17 09/16/17 22:59 06:59 14:59 Intake Total 0 Balance 0 Med Orders - Current: Current Medications Diphenhydramine HCl (Benadryl) 25 mg IVPUSH Q6H PRN PRN Reason: Itching or Nausea Docusate Sodium (Colace) 100 mg PO Q12H PRN PRN Reason: Constipation Last Admin: 09/15/17 13:37 Dose: 100 mg Emollient Ointment (Lansinoh Hpa) 0 gm TOP ASDIRECTED PRN PRN Reason: Sore Nipples Last Admin: 09/14/17 23:53 Dose: 1 tube Ephedrine Sulfate (Ephedrine Sulfate) 5 mg IVPUSH SEECOMMENT PRN PRN Reason: Other Hydrocortisone Acetate (Anucort-Hc) 25 mg RECTAL BID PRN PRN Reason: Hemorrhoids Ibuprofen (Motrin) 600 mg PO Q6H PRN PRN Reason: mild pain or fever Last Admin: 09/16/17 00:27 Dose: 600 mg Lorazepam (Ativan) 1 mg PO Q8H PRN PRN Reason: Anxiety Last Admin: 09/14/17 21:39 Dose: 1 mg Naloxone HCl (Narcan) 0.1 mg IVPUSH SEECOMMENT PRN PRN Reason: Respiratory Depression Oxycodone/Acetaminophen (Percocet 325-5 Mg) 1 - 2 tab PO Q6H PRN PRN Reason: Pain Last Admin: 09/16/17 04:12 Dose: 1 tab Escitalopram 10mg (Ptom) 0 each PO DAILY NINOSKA Last Admin: 09/15/17 08:17 Dose: 1 each Witch Renee (Tucks) 1 pad TOP ASDIRECTED PRN PRN Reason: Perineal Comfort Measure Last Admin: 09/13/17 08:35 Dose: 1 canister Discontinued Medications Bupivacaine HCl (Marcaine 0.5%) Confirm Administered Dose 30 ml .ROUTE .STK-MED ONE Stop: 09/13/17 03:21 Last Admin: 09/13/17 04:14 Dose: 20 ml Bupivacaine HCl (Sensorcaine-Mpf 0.25%) 10 ml .ROUTE .STK-MED ONE Stop: 09/13/17 02:01 Cefazolin Sodium (Ancef) Confirm Administered Dose 2 gm .ROUTE .STK-MED ONE Stop: 09/13/17 03:47 Citric Acid/Sodium Citrate (Bicitra Solution) 30 ml PO ONETIME ONE Stop: 09/13/17 03:16 Last Admin: 09/13/17 03:23 Dose: 30 ml Diphenhydramine HCl (Benadryl) 25 mg IVPUSH Q6H PRN PRN Reason: pruritis Ephedrine Sulfate (Ephedrine Sulfate) 5 mg IVPUSH ASDIRECTED PRN PRN Reason: Hypotension Ephedrine Sulfate (Ephedrine In Ns) Confirm Administered Dose 25 mg .ROUTE .[facility] ONE Stop: 09/13/17 04:56 Fentanyl (Sublimaze) 100 mcg EPIDUR Q3H PRN PRN Reason: Pain Fentanyl (Sublimaze) Confirm Administered Dose 100 mcg .ROUTE .[facility] ONE Stop: 09/13/17 03:47 Fentanyl (Sublimaze) 50 mcg IVPUSH Q5M PRN PRN Reason: Pain Fentanyl/Bupivacaine HCl (Fentanyl/Bupivacaine/Ns 2 Mcg-0.125% 100 Ml) 100 ml EPIDUR ASDIRECTED [facility] Lactated Ringer's (Ringers, Lactated) Confirm Administered Dose 1,000 mls @ as directed .ROUTE .[facility] ONE Stop: 09/12/17 19:30 Last Admin: 09/13/17 07:52 Dose: Not Given Lactated Ringer's (Ringers, Lactated) 1,000 mls @ 100 mls/hr IV ASDIRECTED [facility] Oxytocin/Lactated Ringer's (Pitocin In Lr 10 Units/1,000 Ml) 10 unit in 1,000 mls @ 500 mls/hr IV .CONTINUOUS NINOSKA Lactated Ringer's (Ringers, Lactated) 1,000 mls @ 125 mls/hr IV ASDIRECTED [facility] Last Admin: 09/13/17 07:49 Dose: 125 mls/hr Lactated Ringer's (Ringers, Lactated) Confirm Administered Dose 1,000 mls @ as directed .ROUTE .[facility] ONE Stop: 09/13/17 03:47 Phenylephrine HCl 1 mg/ Sodium (Chloride) 10.1 mls @ 1 mls/sec IV TITRATE NINOSKA PRN Reason: Protocol Lactated Ringer's (Ringers, Lactated) Confirm Administered Dose 1,000 mls @ as directed .ROUTE .[facility] ONE Stop: 09/13/17 05:01 Dextrose/Lactated Ringer's (Dextrose 5%-Lactated Ringers) 1,000 mls @ 125 mls/ hr IV ASDIRECTED [facility] Stop: 09/13/17 14:05 Last Admin: 09/13/17 08:37 Dose: 125 mls/hr Ketorolac Tromethamine (Toradol) Confirm Administered Dose 30 mg .ROUTE .[facility] ONE Stop: 09/13/17 03:47 Ketorolac Tromethamine (Toradol) 30 mg IVPUSH Q6H NINOSKA Stop: 09/13/17 23:01 Last Admin: 09/13/17 22:44 Dose: 30 mg Lidocaine/Epinephrine (Xylocaine-Mpf 2%-Epi 1:200,000) Confirm Administered Dose 20 ml .ROUTE .STK-MED ONE Stop: 09/13/17 03:47 Meperidine HCl (Demerol) 12.5 mg IVPUSH ONETIME PRN PRN Reason: shivering Meperidine HCl (Demerol) Confirm Administered Dose 50 mg .ROUTE .STK-MED ONE Stop: 09/13/17 04:55 Metoclopramide HCl (Reglan) 10 mg IVPUSH ONETIME ONE Stop: 09/13/17 03:16 Last Admin: 09/13/17 03:24 Dose: 10 mg Morphine Sulfate (Duramorph Pf) Confirm Administered Dose 1 mg .ROUTE .STK-MED ONE Stop: 09/13/17 03:25 Ondansetron HCl (Zofran) 4 mg IVPUSH Q4H PRN PRN Reason: Nausea/Vomiting Ondansetron HCl (Zofran) Confirm Administered Dose 4 mg .ROUTE .STK-MED ONE Stop: 09/13/17 03:47 Ondansetron HCl (Zofran) 4 mg IVPUSH ONETIME PRN PRN Reason: Nausea/Vomiting Oxytocin (Pitocin) Confirm Administered Dose 10 unit .ROUTE .STK-MED ONE Stop: 09/13/17 03:47 Phenylephrine HCl (Alex-Synephrine) Confirm Administered Dose 10 mg .ROUTE .STK- MED ONE Stop: 09/13/17 03:47 Phenylephrine HCl (Phenylephrine In Ns 100 Mcg/Ml) Confirm Administered Dose 1 mg .ROUTE .STK-MED ONE Stop: 09/13/17 04:53 Sodium Chloride (Saline Flush) 10 ml FLUSH ASDIRECTED PRN PRN Reason: Keep Vein Open Sodium Chloride (Saline Flush) 10 ml FLUSH ASDIRECTED PRN PRN Reason: Keep Vein Open *Q Meaningful Use (DIS) - VTE *Q VTE Criteria *Q: - Stroke *Q Stroke Criteria *Q: - AMI *Q AMI Criteria *Q:
[2017-09-16] MEDS: ESCITALOPRAM 10 MG PO SCH (08:51)
[2017-09-16 10:49] VITALS: BP 131/81
== END 2017-09-16 11:05 | disposition home or self-care (01) | DRG 766 ==
LOC: JD.OBCHECK 18:58 → JD.OB 19:04 → JD.OBCHECK 19:05 → JD.OB 20:32 → OBSVTOIN 09-13 04:25 → JD.OB 09-13 04:25
PROVIDERS: ADMIT Obstetrics & Gynecology; ATTEND Obstetrics & Gynecology
PROC: 10D00Z1 Extraction of Products of Conception, Low, Open Approach (ICD-10-PCS; principal; 2017-09-13)
PROC: 00HU33Z Insertion of Infusion Device into Spinal Canal, Percutaneous Approach (ICD-10-PCS; 2017-09-13)
PROC: 3E0R3BZ Introduction of Anesthetic Agent into Spinal Canal, Percutaneous Approach (ICD-10-PCS; 2017-09-13)
PROC: 10S07ZZ Reposition Products of Conception, Via Natural or Artificial Opening (ICD-10-PCS; 2017-09-13)
DX: O42.92 Full-term premature rupture of membranes, unspecified as to length of time between rupture and onset of labor (principal); O32.4XX0 Maternal care for high head at term, not applicable or unspecified; O99.344 Other mental disorders complicating childbirth; F41.9 Anxiety disorder, unspecified; Z3A.39 39 weeks gestation of pregnancy; Z37.0 Single live birth; Z79.899 Other long term (current) drug therapy
CPT/HCPCS: 01967; 01968; 36415; 51702; 82803; 85025; 86850; 86900; 86901; A9270-GY; J0690; J1885; J2175; J2274; J2370; J2405; J2590; J2765; J3010; J7042; J7050; J7120

== ENCOUNTER 2019-05-10 14:20 | Emergency (ER) | payer OTHER ==
[2019-05-10 14:39] VITALS: BP 130/88; PULSE 84
[2019-05-10] MEDS ORDERED: Sodium Chloride 0.9% 10 ML Syringe FLUSH PRN (14:59)
[2019-05-10] MEDS ORDERED: Sodium Chloride 0.9% 1,000 ML IV SCH (15:00)
--- NOTE | 2019-05-10 15:06 | EDM.PDOC ---
ED HPI GENERAL MEDICAL PROBLEM - General Chief Complaint: Headache Stated Complaint: NAUSEA AND HEADACHE POST CONCUSSION Time Seen by Provider: 05/10/19 14:44 Source of Information: Reports: Patient, Family (mother), RN Notes Reviewed - History of Present Illness INITIAL COMMENTS - FREE TEXT/NARRATIVE: 33 year old female comes in with Hunt, dizziness for the past week. She passed out 1 week ago, fell hit her L head against a counter. She is reported to have had LOC of about 3 to 5 minutes. Since than has had continued Hunt, wakes her up at least once per night, has had continued nausa, vomiting, has not felt well enough to work. Feels dizzy off balance when walking. She is about 8 weeks . She did have an OB US 3 days ago and that is reported as normal with good heart tones. No major neck or back pain. No current chest, abd pain or difficulty breathing. Left Headache Pain Score (Numeric/FACES): 6 - Related Data Allergies Allergy/AdvReac Type Severity Reaction Status Date / Time No Known Allergies Allergy Verified 01/30/17 10:52 Home Meds: Home Meds Docosahexanoic Acid [DHA] 100 mg PO DAILY 01/30/17 [History] Escitalopram [Lexapro] 10 mg PO DAILY 01/30/17 [History] Vit with Ca/FA/Iron [ Plus Iron] 1 tab PO DAILY 01/30/17 [ History] Past Medical History - Past Health History Medical/Surgical History: Denies Medical/Surgical History HEENT History: Reports: Impaired Vision Other HEENT History: wears eyeglasses Respiratory History: Reports: Bronchitis, Recurrent Genitourinary History: Reports: UTI, Recurrent 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 Psychiatric History: Reports: Anxiety Dermatologic History: Reports: Eczema - Infectious Disease History Infectious Disease History: Reports: Chicken Pox Social & Family History - Family History Family Medical History: Noncontributory - Tobacco Use Smoking Status *Q: Never Smoker - Caffeine Use Caffeine Use: Reports: Soda, Tea - Recreational Drug Use Recreational Drug Use: No ED ROS GENERAL - Review of Systems Review Of Systems: See Below Constitutional: Denies: Fever, Chills HEENT: Denies: Dental Pain, Ear Discharge, Ear Pain, Rhinitis, Sinus Problem, Throat Pain, Vertigo Respiratory: Denies: Shortness of Breath Cardiovascular: Denies: Chest Pain GI/Abdominal: Reports: Nausea, Vomiting. Denies: Abdominal Pain Musculoskeletal: Reports: Neck Pain (mild soreness). Denies: Back Pain Skin: Denies: Rash Neurological: Reports: Dizziness, Headache, Difficulty Walking. Denies: Numbness, Tingling, Trouble Speaking, Weakness ED EXAM, HEAD INJURY - Physical Exam Exam: See Below General Appearance: Alert, No Apparent Distress Head: Atraumatic. No: Scalp Swelling, Scalp Hematoma, Scalp Tenderness, Facial Swelling Ears: Normal External Exam, Normal Canal Nose: Normal Inspection Throat/Mouth: Other (oral mucosa is mildly dry) Neck: Other (mild tenderness bilat base). No: Tender Midline Respiratory: No Respiratory Distress, Lungs Clear, Normal Breath Sounds Cardiovascular: Regular Rate, Rhythm GI/Abdominal Exam: Soft, Non-Tender Back Exam: Normal Inspection Extremities: Normal Inspection, Normal Range of Motion Neurologic: No Motor/Sensory Deficits, Oriented x 3 Skin: Normal Color, Warm/Dry Course - Vital Signs Last Recorded V/S: Last Vital Signs Temp 98.0 F 05/10/19 14:39 Pulse 84 05/10/19 14:39 Resp 20 05/10/19 14:39 BP 130/88 05/10/19 14:39 Pulse Ox 98 05/10/19 14:39 - Orders/Labs/Meds Orders: Active Orders 24 hr Category Date Time Status Peripheral IV Care [RC] . DIRECTED Care 05/10/19 14:59 Active Peripheral IV Insertion Adult [OM.PC] Stat Oth 05/10/19 14:59 Ordered Labs: Laboratory Tests 05/10/19 05/10/19 05/10/19 Range/Units 15:15 15:16 15:16 WBC 10.20 H (3.98-10.04) K/mm3 RBC 4.82 (3.98-5.22) M/mm3 Hgb 14.4 D (11.2-15.7) gm/L Hct 42.4 (34.1-44.9) % MCV 88.0 D (79.4-94.8) fl MCH 29.9 (25.6-32.2) pg MCHC 34.0 (32.2-35.5) g/dl RDW Std Deviation 40.7 (36.4-46.3) fL Plt Count 240 D (182-369) K/mm3 MPV 10.7 (9.4-12.3) fl Neut % (Auto) 58.3 (34.0-71.1) % Lymph % (Auto) 33.9 (19.3-51.7) % [place] % (Auto) 6.8 (4.7-12.5) % Eos % (Auto) 0.4 L (0.7-5.8) Baso % (Auto) 0.4 (0.1-1.2) % Neut # (Auto) 5.95 (1.56-6.13) K/mm3 Lymph # (Auto) 3.46 (1.18-3.74) K/mm3 [place] # (Auto) 0.69 H (0.24-0.36) K/mm3 Eos # (Auto) 0.04 (0.04-0.36) K/mm3 Baso # (Auto) 0.04 (0.01-0.08) K/mm3 Manual Slide Review Normal smear Sodium 139 (136-145) mEq/L Potassium 3.6 (3.5-5.1) mEq/L Chloride 101 (98-107) mEq/L Carbon Dioxide 25 (21-32) mEq/L Anion Gap 16.6 H (5-15) BUN 15 (7-18) mg/dL Creatinine 0.7 (0.55-1.02) mg/dL Est Cr Clr Drug Dosing 134.24 mL/min Estimated GFR (MDRD) > 60 (>60) mL/min BUN/Creatinine Ratio 21.4 H (14-18) Glucose 94 (74-106) mg/dL Calcium 8.7 (8.5-10.1) mg/dL Total Bilirubin 0.3 (0.2-1.0) mg/dL AST 17 (15-37) U/L ALT 18 (14-59) U/L Alkaline Phosphatase 51 (46-116) U/L Total Protein 7.5 (6.4-8.2) g/dl Albumin 3.6 (3.4-5.0) g/dl Globulin 3.9 gm/dL Albumin/Globulin Ratio 0.9 L (1-2) Urine Color Yellow (Yellow) Urine Appearance Clear (Clear) Urine pH 6.5 (5.0-8.0) Ur Specific [place] 1.015 (1.005-1.030) Urine Protein Negative (Negative) Urine Glucose (UA) Negative (Negative) Urine Ketones Negative (Negative) Urine Occult Blood Negative (Negative) Urine Nitrite Negative (Negative) Urine Bilirubin Negative (Negative) Urine Urobilinogen 0.2 (0.2-1.0) Ur Leukocyte Esterase Negative (Negative) Urine RBC 0-5 (0-5) /hpf Urine WBC 0-5 (0-5) /hpf Ur Squamous Epith Cells 0-5 (0-5) /hpf Urine Bacteria Rare (FEW) /hpf Urine Mucus Not seen (FEW) /hpf Meds: Medications Discontinued Medications Generic Name Dose Route Start Last Admin Trade Name Freq PRN Reason Stop Dose Admin Sodium Chloride 1,000 mls @ 999 mls/hr 05/10/19 15:00 05/10/19 15:22 Normal Saline IV 999 mls/hr ONETIME NINOSKA Administration Sodium Chloride 10 ml 05/10/19 14:59 05/10/19 15:22 Saline Flush FLUSH 10 ml ASDIRECTED PRN Administration Keep Vein Open - Re-Assessments/Exams Free Text/Narrative Re-Assessment/Exam: 05/10/19 15:09. Patient and mother very concerned about Hunt, dizziness, difficulty walking, Hunt wakes her up at night. This has been going on for a week , she does not feel that sx are improving. I have discussed option of head CT with consideration of 8 week . Patient and her mother want to have head CT done today with consideration off her continued sx not improving. 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 as documented. Departure - Departure Time of Disposition: 16:27 Disposition: Home, Self-Care 01 Condition: Fair Clinical Impression: First trimester Concussion Qualifiers: Encounter type: subsequent encounter Loss of consciousness presence/duration: with LOC of 30 min or less Qualified Code(s): S06.0X1D - Concussion with loss of consciousness of 30 minutes or less, subsequent encounter - Discharge Information Instructions: Concussion, Adult, [id number] Referrals: Casandra Guevara MD [Primary Care Provider] - Forms: ED Department Discharge, ED Return to Work/School Form Additional Instructions: continue to rest, tylenol 500 mg 2 or 3 times daily is safe. Drink plenty of fluids to maintain hydration. Follow up clinic in 2 to 3 days for recheck, call for appt., return to ED as needed if symptoms worsening in any way. - My Orders Last 24 Hours: My Active Orders 05/10/19 14:59 Peripheral IV Care [RC] . DIRECTED Peripheral IV Insertion Adult [OM.PC] Stat - Assessment/Plan Last 24 Hours: My Active Orders 05/10/19 14:59 Peripheral IV Care [RC] . DIRECTED Peripheral IV Insertion Adult [OM.PC] Stat
--- NOTE | 2019-05-10 15:57 | CT ---
Head CT Technique: Multiple axial sections through the brain were obtained. Intravenous contrast was not utilized. Comparison: No prior intracranial imaging is available. Findings: Ventricles along with basal cisterns and sulci over the convexities are within normal limits for the patient's age. No abnormal parenchymal densities are seen. No evidence of intracranial hemorrhage. No midline shift or mass effect is seen. Bone window settings were reviewed which show the visualized paranasal sinuses to appear clear. Mastoid sinuses are also felt to be clear. No acute calvarial abnormality is seen. Impression: 1. Nothing acute is appreciated on noncontrast head CT exam. Diagnostic code #1
== END 2019-05-10 16:50 | disposition home or self-care (01) ==
LOC: SUPCPDRO 14:20 → JD.ED 14:20
DX: O9A.211 Injury, poisoning and certain other consequences of external causes complicating pregnancy, first trimester (principal); S06.0X1D Concussion with loss of consciousness of 30 minutes or less, subsequent encounter; Z79.899 Other long term (current) drug therapy; Z3A.08 8 weeks gestation of pregnancy; W19.XXXA Unspecified fall, initial encounter; W22.8XXA Striking against or struck by other objects, initial encounter
CPT/HCPCS: 36415; 70450; 80053; 81001; 85025; 96360; 99283; J7040

== ENCOUNTER 2019-10-13 07:42 | Emergency (ER) | payer OTHER ==
[2019-10-13 07:58] VITALS: PULSE 96
[2019-10-13] MEDS ORDERED: Sodium Chloride 0.9% 1,000 ML IV STA (08:24)
[2019-10-13] MEDS ORDERED: Metoclopramide 10 MG/2 ML SDV IVPUSH ONE (08:24)
[2019-10-13] MEDS ORDERED: Sodium Chloride 0.9% 10 ML Syringe FLUSH PRN (08:24)
--- NOTE | 2019-10-13 08:25 | EDM.PDOC ---
<Aundrea Rosenthal - Last Filed: 10/13/19 08:18> ED HPI GENERAL MEDICAL PROBLEM - General Chief Complaint: Fever Stated Complaint: FLU SYMPTOMS/EXPOSED TO INFLUENZA Time Seen by Provider: 10/13/19 08:09 Source of Information: Reports: Patient History Limitations: Reports: No Limitations - History of Present Illness INITIAL COMMENTS - FREE TEXT/NARRATIVE: Patient is a pleasant female who presents to the ED with complaints of body aches, cough, nausea, vomiting, and diarrhea. She notes yesterday morning her symptoms started with a decreased appetite, sneezing, and runny nose. Then last night the body aches, cough, sore throat, and fatigue manifested. This morning she has had one episode each of diarrhea and emesis. Denies seeing blood in emesis or stool. She has felt chilled at home but denies fever. Feels a little short of breath, but correlates this to being 31 weeks . This morning she reports she felt a little chest pressure after vomiting. She did receive the influenza vaccine this year. 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 Her last appointment was on 10/08/2019 and she reports no complications. Of note, she recently brought her son into the ED with similar symptoms two days ago. He was tested for influenza and was negative. Generalized Pain Score (Numeric/FACES): 5 - Related Data Allergies Allergy/AdvReac Type Severity Reaction Status Date / Time No Known Allergies Allergy Verified 10/13/19 07:47 Home Meds: Home Meds Docosahexanoic Acid [DHA] 100 mg PO DAILY 01/30/17 [History] Escitalopram [Lexapro] 15 mg PO DAILY 01/30/17 [History] Vit with Ca/FA/Iron [ Plus Iron] 1 tab PO DAILY 01/30/17 [ History] Loratadine [Claritin] 10 mg PO DAILY 10/13/19 [History] Metoclopramide HCl [Reglan] 10 mg PO Q6H PRN #30 tablet 10/13/19 [Rx] Past Medical History - Past Health History Medical/Surgical History: Denies Medical/Surgical History HEENT History: Reports: Impaired Vision Other HEENT History: wears reading eyeglasses Respiratory History: Reports: Bronchitis, Recurrent Genitourinary History: Reports: UTI, Recurrent 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 Neurological History: Reports: Concussion Psychiatric History: Reports: Anxiety Dermatologic History: Reports: Eczema - Infectious Disease History Infectious Disease History: Reports: Chicken Pox - Past Surgical History Female Surgical History: Reports: Section Social & Family History - Family History Family Medical History: Noncontributory - Tobacco Use Smoking Status *Q: Never Smoker Second Hand Smoke Exposure: No - Caffeine Use Caffeine Use: Reports: Coffee, Tea - Recreational Drug Use Recreational Drug Use: No ED ROS ENT - Review of Systems Review Of Systems: See Below Constitutional: Reports: Chills, Fatigue, Decreased Appetite. Denies: Fever, Weakness HEENT: Reports: Rhinitis. Denies: Ear Pain, Eye Pain, Throat Pain, Vertigo, Vision Change Respiratory: Reports: Shortness of Breath (relates to being 31 weeks ), Cough (non-productive). Denies: Wheezing Cardiovascular: Reports: Chest Pain (pressure this morning). Denies: Edema, Lightheadedness, Syncope GI/Abdominal: Reports: Diarrhea (one episode this morning), Decreased Appetite, Nausea, Vomiting (one episode this morning). Denies: Abdominal Pain, Bloody Stool, Hematemesis : Reports: No Symptoms. Denies: Dysuria Musculoskeletal: Reports: Muscle Pain (bodyaches ). Denies: Neck Pain, Back Pain Skin: Reports: No Symptoms. Denies: Rash Neurological: Reports: No Symptoms. Denies: Dizziness, Headache, Syncope Psychiatric: Reports: No Symptoms ED EXAM, ENT - Physical Exam Exam: See Below Exam Limited By: No Limitations General Appearance: Alert, WD/WN, No Apparent Distress Eye Exam: Bilateral Eye: Normal Inspection, PERRL Ears: Normal External Exam, Normal Canal, Hearing Grossly Normal, Normal TMs Nose: Normal Inspection, Normal Mucousa, No Blood Mouth/Throat: Normal Inspection, Normal Gums, Normal Lips, Normal Teeth, Pharyngeal Erythema, Tonsillar Erythema. No: Tonsillar Exudates Head: Atraumatic, Normocephalic Neck: Normal Inspection, Supple, Non-Tender, Full Range of Motion Respiratory/Chest: No Respiratory Distress, Lungs Clear, Normal Breath Sounds, No Accessory Muscle Use, Chest Non-Tender Cardiovascular: Normal Peripheral Pulses, Regular Rate, Rhythm, No Edema, No Gallop, No Murmur, No Rub GI/Abdominal: Normal Bowel Sounds, Soft, Non-Tender, No Organomegaly, No Distention, No Mass Back: Normal Inspection, Full Range of Motion Extremities: Normal Inspection, Normal Range of Motion, Non-Tender, No Pedal Edema, Normal Capillary Refill Neurological: Alert, Oriented, Normal Cognition, No Motor/Sensory Deficits Psychiatric: Normal Affect, Normal Mood Skin: Warm, Dry, Intact, Normal Color, No Rash Lymphatic: No Adenopathy Course - Vital Signs Last Recorded V/S: Last Vital Signs Temp 97.5 F 10/13/19 07:45 Pulse 96 10/13/19 07:45 Resp 18 10/13/19 07:45 BP 110/76 10/13/19 07:45 Pulse Ox 100 10/13/19 07:45 Orthostatic Blood Pressure [ 125/113 Standing] Orthostatic Blood Pressure [ 127/86 Sitting] Orthostatic Blood Pressure [ 110/76 Supine] - Orders/Labs/Meds Orders: Active Orders 24 hr Category Date Time Status Peripheral IV Care [RC] . DIRECTED Care 10/13/19 08:24 Active CULTURE STREP A CONFIRMATION [] Stat Lab 10/13/19 09:13 Results STREP SCRN A RAPID W CULT CONF [] Stat Lab 10/13/19 09:13 Results Sodium Chloride 0.9% [Saline Flush] Med 10/13/19 08:24 Active 10 ml FLUSH ASDIRECTED PRN ED Antiemetic Medication Reflex [OM.PC] Stat Oth 10/13/19 08:24 Ordered Peripheral IV Insertion Adult [OM.PC] Stat Oth 10/13/19 08:24 Ordered Medication Orders Sodium Chloride (Saline Flush) 10 ml FLUSH ASDIRECTED PRN PRN Reason: Keep Vein Open Last Admin: 10/13/19 09:35 Dose: 10 ml Labs: Laboratory Tests 10/13/19 10/13/19 Range/Units 08:15 08:15 WBC 8.88 (3.98-10.04) K/mm3 RBC 4.25 (3.98-5.22) M/mm3 Hgb 13.1 (11.2-15.7) gm/dl Hct 39.4 (34.1-44.9) % MCV 92.7 D (79.4-94.8) fl MCH 30.8 (25.6-32.2) pg MCHC 33.2 (32.2-35.5) g/dl RDW Std Deviation 44.3 (36.4-46.3) fL Plt Count 196 (182-369) K/mm3 MPV 10.8 (9.4-12.3) fl Neut % (Auto) 85.3 H (34.0-71.1) % Lymph % (Auto) 8.4 L (19.3-51.7) % [place] % (Auto) 5.4 (4.7-12.5) % Eos % (Auto) 0.1 L (0.7-5.8) Baso % (Auto) 0.2 (0.1-1.2) % Neut # (Auto) 7.57 H (1.56-6.13) K/mm3 Lymph # (Auto) 0.75 L (1.18-3.74) K/mm3 [place] # (Auto) 0.48 H (0.24-0.36) K/mm3 Eos # (Auto) 0.01 L (0.04-0.36) K/mm3 Baso # (Auto) 0.02 (0.01-0.08) K/mm3 Manual Slide Review Abnormal smear Sodium 139 (136-145) mEq/L Potassium 3.8 (3.5-5.1) mEq/L Chloride 105 (98-107) mEq/L Carbon Dioxide 20 L (21-32) mEq/L Anion Gap 17.8 H (5-15) BUN 8 (7-18) mg/dL Creatinine 0.6 (0.55-1.02) mg/dL Est Cr Clr Drug Dosing 158.74 mL/min Estimated GFR (MDRD) > 60 (>60) mL/min BUN/Creatinine Ratio 13.3 L (14-18) Glucose 89 (74-106) mg/dL Calcium 8.0 L (8.5-10.1) mg/dL Total Bilirubin 0.5 (0.2-1.0) mg/dL AST 24 (15-37) U/L ALT 23 (14-59) U/L Alkaline Phosphatase 91 (46-116) U/L Total Protein 6.4 (6.4-8.2) g/dl Albumin 2.5 L (3.4-5.0) g/dl Globulin 3.9 gm/dL Albumin/Globulin Ratio 0.6 L (1-2) Lipase 170 (73-393) U/L Meds: Medications Generic Name Dose Route Start Last Admin Trade Name Murray PRN Reason Stop Dose Admin Sodium Chloride 10 ml 10/13/19 08:24 10/13/19 09:35 Saline Flush FLUSH 10 ml ASDIRECTED PRN Administration Keep Vein Open Discontinued Medications Generic Name Dose Route Start Last Admin Trade Name Murray PRN Reason Stop Dose Admin Sodium Chloride 1,000 mls @ 1,000 mls/hr 10/13/19 08:24 10/13/19 08:32 Normal Saline IV 10/13/19 09:23 1,000 mls/hr .BOLUS STA Administration Metoclopramide HCl 10 mg 10/13/19 08:24 10/13/19 08:32 Reglan IVPUSH 10/13/19 08:25 10 mg ONETIME ONE Administration Departure - Departure Disposition: Home, Self-Care 01 Clinical Impression: Gastroenteritis, Viral URI - Discharge Information Prescriptions: Metoclopramide HCl [Reglan] 10 mg PO Q6H PRN #30 tablet PRN Reason: Nausea Referrals: Casandra Guevara MD [Primary Care Provider] - Forms: ED Department Discharge Additional Instructions: Drink plenty of fluids. Take the reglan every 6 hours as needed for nausea or vomiting. Take tylenol as needed for fever or pain. Sepsis Event Note - Evaluation Sepsis Screening Result: No Definite Risk - Focused Exam Vital Signs: Vital Signs Temp Pulse Resp BP Pulse Ox 10/13/19 07:45 97.5 F 96 18 110/76 100 Date Exam was Performed: 10/13/19 Time Exam was Performed: 08:18 - My Orders Last 24 Hours: My Active Orders 10/13/19 08:24 Peripheral IV Care [RC] . DIRECTED Sodium Chloride 0.9% [Saline Flush] 10 ml FLUSH ASDIRECTED PRN ED Antiemetic Medication Reflex [OM.PC] Stat Peripheral IV Insertion Adult [OM.PC] Stat 10/13/19 09:13 CULTURE STREP A CONFIRMATION [RM] Stat STREP SCRN A RAPID W CULT CONF [RM] Stat - Assessment/Plan Last 24 Hours: My Active Orders 10/13/19 08:24 Peripheral IV Care [RC] . DIRECTED Sodium Chloride 0.9% [Saline Flush] 10 ml FLUSH ASDIRECTED PRN ED Antiemetic Medication Reflex [OM.PC] Stat Peripheral IV Insertion Adult [OM.PC] Stat 10/13/19 09:13 CULTURE STREP A CONFIRMATION [RM] Stat STREP SCRN A RAPID W CULT CONF [RM] Stat <Stanislaw Cruz A - Last Filed: 10/13/19 11:02> Course - Re-Assessments/Exams Free Text/Narrative Re-Assessment/Exam: 10/13/19 10:12 I examined the patient myself and I agree with Aundrea's assessment and plan. I ordered an IV NS 1L bolus, reglan 10mg IV, labs, influenza and strep. The influenza and strep are negative. The CBC looks good. Her anion gap was elevated at 17.8. Her lipase is normal. I went to talk to the patient and someone unhooked the IV and she had blood from her IV on the bed and on her arm. My nurse is cleaning it up. 10/13/19 10:58 She is doing good. I will discharge her home on some reglan as needed for nausea and vomiting. Departure - Departure Time of Disposition: 23:00 Condition: Good - Discharge Information *PRESCRIPTION DRUG MONITORING PROGRAM REVIEWED*: Not Applicable *COPY OF PRESCRIPTION DRUG MONITORING REPORT IN PATIENT PATIENCE: Not Applicable Sepsis Event Note - Focused Exam Date Exam was Performed: 10/13/19 Time Exam was Performed: 10:58
[2019-10-13 11:20] VITALS: BP 114/77
== END 2019-10-13 11:10 | disposition home or self-care (01) ==
LOC: JD.ED 07:42
DX: O99.613 Diseases of the digestive system complicating pregnancy, third trimester (principal); K52.9 Noninfective gastroenteritis and colitis, unspecified; O99.513 Diseases of the respiratory system complicating pregnancy, third trimester; J06.9 Acute upper respiratory infection, unspecified; O99.343 Other mental disorders complicating pregnancy, third trimester; F41.9 Anxiety disorder, unspecified; Z3A.31 31 weeks gestation of pregnancy; Z79.899 Other long term (current) drug therapy
CPT/HCPCS: 36415; 80053; 83690; 85025; 87081; 87430; 87804; 96361; 96374; 99284; J2765; J7030

== ENCOUNTER 2019-11-30 19:34 | Inpatient (IN) | payer OTHER ==
[2019-11-30] MEDS ORDERED: Sodium Chloride 0.9% 10 ML Syringe FLUSH PRN (19:43)
[2019-11-30] MEDS ORDERED: Nalbuphine 10 MG/ML Syringe IVPUSH PRN (19:43)
[2019-11-30] MEDS ORDERED: Lidocaine 1% 50 ML MDV INJECT ONE (19:43)
[2019-11-30] MEDS ORDERED: Lactated Ringers 1,000 ML IV SCH (19:45)
[2019-11-30] MEDS ORDERED: Oxytocin/Lactated Ringers 10 UNIT/1,000 ML BAG IV SCH (19:45)
--- NOTE | 2019-11-30 20:12 | PCM.LDHP ---
L&D History of Present Illness - General Date of Service: 11/30/19 Admit Problem/Dx: Patient Status Order with Admit Dx/Problem 11/30/19 19:43 Patient Status [ADT] Routine Admission Diagnosis/Problem Admission Diagnosis/Problem - History of Present Illness Introduction:: Patient with regular care with myself at 37w4 presents complete. - Related Data Allergies/Adverse Reactions: Allergies Allergy/AdvReac Type Severity Reaction Status Date / Time No Known Allergies Allergy Verified 10/13/19 07:47 Home Medications: Home Meds Docosahexanoic Acid [DHA] 100 mg PO DAILY 01/30/17 [History] Escitalopram [Lexapro] 15 mg PO DAILY 01/30/17 [History] Vit with Ca/FA/Iron [ Plus Iron] 1 tab PO DAILY 01/30/17 [ History] Loratadine [Claritin] 10 mg PO DAILY 10/13/19 [History] Metoclopramide HCl [Reglan] 10 mg PO Q6H PRN #30 tablet 10/13/19 [Rx] Past Medical History - Past Health History Medical/Surgical History: Denies Medical/Surgical History HEENT History: Reports: Impaired Vision Other HEENT History: wears reading eyeglasses Respiratory History: Reports: Bronchitis, Recurrent Genitourinary History: Reports: UTI, Recurrent 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 Neurological History: Reports: Concussion Psychiatric History: Reports: Anxiety Dermatologic History: Reports: Eczema - Infectious Disease History Infectious Disease History: Reports: Chicken Pox - Past Surgical History Female Surgical History: Reports: Section Social & Family History - Family History Family Medical History: Noncontributory - Caffeine Use Caffeine Use: Reports: Coffee, Tea H&P Review of Systems - Review of Systems: Review Of Systems: See Below General: Reports: No Symptoms HEENT: Reports: No Symptoms Pulmonary: Reports: No Symptoms Cardiovascular: Reports: No Symptoms Gastrointestinal: Reports: No Symptoms Genitourinary: Reports: No Symptoms Musculoskeletal: Reports: No Symptoms Skin: Reports: No Symptoms Psychiatric: Reports: No Symptoms Neurological: Reports: No Symptoms Hematologic/Lymphatic: Reports: No Symptoms Immunologic: Reports: No Symptoms L&D Exam - Exam Exam: See Below - OB Specific Contraction Intensity: Moderate Movement: Active Heart Tones: Present Heart Rate (FHR) Variability: Moderate (6-25 bmp) Presentation: Vertex - Acuña Score Acuña Score Cervix Position: Midposition Acuña Score Consistency: Medium Acuña Score Effacement: 51-70% Acuña Score Dilation: > 5 cm Acuña Score Infant's Station: +1, +2 Acuña Score Total: 10 - Exam General: Alert, Oriented HEENT: PERRLA, Conjunctiva Clear, EACs Clear, EOMI, Hearing Intact, Mucosa Moist & [place], Nares Patent, Normal Nasal Septum, Posterior Pharynx Clear, TMs Clear Neck: Supple, Trachea Midline Lungs: Clear to Auscultation, Normal Respiratory Effort Cardiovascular: Regular Rate, Regular Rhythm GI/Abdominal Exam: Normal Bowel Sounds, Soft, Non-Tender, No Organomegaly, No Distention, No Abnormal Bruit, No Mass, Pelvis Stable Rectal Exam: Normal Exam, Normal Rectal Tone Genitourinary: Normal external exam, Normal bimanual exam, Normal speculum exam Extremities: Normal Inspection, Normal Range of Motion, Non-Tender, No Pedal Edema, Normal Capillary Refill Skin: Warm, Dry, Intact Neurological: Cranial Nerves Intact, Reflexes Equal Bilateral Psychiatric: Alert, Normal Affect, Normal Mood Problem List Initiated/Reviewed/Updated: Yes Orders Last 24hrs: Active Orders 24 hr Category Date Time Status Patient Status Manage Transfer [TRANSFER] Routine ADT 11/30/19 20:09 Ordered Patient Status [ADT] Routine ADT 11/30/19 19:43 Active Activity as Tolerated [RC] PFP Care 11/30/19 19:43 Active Communication Order [RC] ASDIRECTED Care 11/30/19 19:43 Active Heart Tones [RC] ASDIRECTED Care 11/30/19 19:44 Active Non Stress Test [RC] PER UNIT ROUTINE Care 11/30/19 19:43 Active Notify Provider [RC] PFP Care 11/30/19 19:43 Active Notify Provider [RC] PRN Care 11/30/19 19:43 Active Peripheral IV Care [RC] . DIRECTED Care 11/30/19 19:44 Active Vital Signs [RC] PER UNIT ROUTINE Care 11/30/19 19:43 Active CBC WITH AUTO DIFF [HEME] Stat Lab 11/30/19 19:43 Ordered RAPID PLASMA REAGIN,RPR [CHEM] Routine Lab 11/30/19 19:43 Ordered Lactated Ringers [Ringers, Lactated] 1,000 ml Med 11/30/19 19:45 Active IV ASDIRECTED Nalbuphine [Nubain] Med 11/30/19 19:43 Active 10 mg IVPUSH Q2H PRN Oxytocin/Lactated Ringers [Pitocin in LR 10 Units/1,000 Med 11/30/19 19:45 Active ML] 10 unit in 1,000 ml IV .CONTINUOUS Sodium Chloride 0.9% [Saline Flush] Med 11/30/19 19:43 Active 10 ml FLUSH ASDIRECTED PRN Electronic Heart Tones Ext w TOCO [WOMSER] Oth 11/30/19 19:43 Ordered Routine Electronic Heart Tones Internal [WOMSER] Per Unit Oth 11/30/19 19:43 Ordered Routine Peripheral IV Insertion Adult [OM.PC] Routine Ot 11/30/19 19:43 Ordered Resuscitation Status Routine Resus Stat 11/30/19 19:43 Ordered Medication Orders Lactated Ringer's (Ringers, Lactated) 1,000 mls @ 100 mls/hr IV ASDIRECTED NINOSKA Oxytocin/Lactated Ringer's (Pitocin In Lr 10 Units/1,000 Ml) 10 unit in 1,000 mls @ 500 mls/hr IV .CONTINUOUS NINOSKA Nalbuphine HCl (Nubain) 10 mg IVPUSH Q2H PRN PRN Reason: Pain Sodium Chloride (Saline Flush) 10 ml FLUSH ASDIRECTED PRN PRN Reason: Keep Vein Open Assessment/Plan Comment:: Term TOLAC with rapid .
--- NOTE | 2019-11-30 20:15 | PCM.SN ---
- Free Text/Narrative Note: Stage 1 - patient presented in active labor at [facility] via ambulance. Prior . RBA of TOLAC and discussed. Stage 2 - of viable male, weight 6#5oz, 8/9 APGARS at 1956. Head delivered in controlled manner over intact perineum. Body and shoulders without difficulty. To maternal abdomen. Positive cry. Cord clamped and cut. Stage 3 - of intact placenta. 3vc. Small 1st degree repaired with 3-0 vicryl. EBL 100.
[2019-11-30] MEDS ORDERED: Benzocaine/Menthol 20%-0.5% Spray 56 GM Canister TOP PRN (21:25)
[2019-11-30] MEDS ORDERED: Docusate Sodium 100 MG Cap PO PRN (21:25)
[2019-11-30] MEDS: Witch Hazel Medicated Pads 40/Jar TOP PRN (22:11)
[2019-11-30] MEDS: Ibuprofen 600 MG Tab PO PRN (23:53)
[2019-12-01] MEDS: Ibuprofen 600 MG Tab PO PRN ×2 (07:06→17:35)
[2019-12-02] MEDS: Ibuprofen 600 MG Tab PO PRN ×2 (01:32→09:50)
--- NOTE | 2019-12-02 07:18 | PCM.DCSUM1 ---
Discharge Summary - Hospital Course Diagnosis: Stroke: No - Discharge Data Discharge Date: 12/02/19 Discharge Disposition: Home, Self-Care 01 Condition: Good - Referral to Home Health Primary Care Physician: Casandra Guevara MD - Patient Summary/Data Hospital Course: Unremarkable precipitous delivery - Patient Instructions Diet: Usual Diet as Tolerated Activity: No Strenuous Activities Driving: May Drive Today Showering/Bathing: May Shower Notify Provider of: Fever, Increased Pain, Swelling and Redness, Drainage, Nausea and/or Vomiting - Discharge Plan *PRESCRIPTION DRUG MONITORING PROGRAM REVIEWED*: No *COPY OF PRESCRIPTION DRUG MONITORING REPORT IN PATIENT PATIENCE: No Home Medications: Home Meds Escitalopram Oxalate [Lexapro] 15 mg PO DAILY 11/30/19 [History] Fluticasone Propionate [Flonase Allergy Relief] 9.9 ml NS BID 11/30/19 [History] Loratadine [Claritin] 10 mg PO DAILY 11/30/19 [History] [place]-3/DHA/Epa/Fish Oil [Fish Oil 1,000 mg Softgel] 1 each PO DAILY 11/30/19 [ History] Ondansetron [Zofran ODT] 4 mg PO Q4HR PRN 11/30/19 [History] No122/Iron/Folic Acid [ Multi Tablet] 1 each PO DAILY 11/30/19 [History] Referrals: Casandra Guevara MD [Primary Care Provider] - (2-4 weeks, telemed) - Discharge Summary/Plan Comment DC Time >30 min.: No - General Info Date of Service: 12/02/19 Functional Status: Reports: Pain Controlled - Review of Systems General: Reports: No Symptoms HEENT: Reports: No Symptoms Pulmonary: Reports: No Symptoms Cardiovascular: Reports: No Symptoms Gastrointestinal: Reports: No Symptoms Genitourinary: Reports: No Symptoms Musculoskeletal: Reports: No Symptoms Skin: Reports: No Symptoms Neurological: Reports: No Symptoms Psychiatric: Reports: No Symptoms - Patient Data Vitals - Most Recent: Last Vital Signs Temp 36.7 C 12/02/19 02:17 Pulse 69 12/01/19 15:31 Resp 16 12/02/19 02:17 BP 129/60 12/02/19 02:17 Pulse Ox 97 12/02/19 02:17 Weight - Most Recent: 83.915 kg I&O - Last 24 hours: Intake & Output 12/01/19 12/02/19 12/02/19 22:59 06:59 14:59 Intake Total 330 Balance 330 Lab Results - Last 24 hrs: Laboratory Results - last 24 hr 12/01/19 Range/Units 05:30 RPR Non-reactive (NONREACTIVE) Med Orders - Current: Current Medications Benzocaine/Menthol (Dermoplast Pain Relief [place]) 0 gm TOP ASDIRECTED PRN PRN Reason: Perineal Comfort Measure Last Admin: 11/30/19 22:12 Dose: 1 can Docusate Sodium (Colace) 100 mg PO BID PRN PRN Reason: Constipation Ibuprofen (Motrin) 600 mg PO Q6H PRN PRN Reason: Mild pain or fever Last Admin: 12/02/19 01:32 Dose: 600 mg Witch Renee (Tucks) 1 pad TOP ASDIRECTED PRN PRN Reason: Pain Last Admin: 11/30/19 22:11 Dose: 1 tube Discontinued Medications Lactated Ringer's (Ringers, Lactated) 1,000 mls @ 100 mls/hr IV ASDIRECTED NINOSKA Oxytocin/Lactated Ringer's (Pitocin In Lr 10 Units/1,000 Ml) 10 unit in 1,000 mls @ 500 mls/hr IV .CONTINUOUS NINOSKA Last Admin: 11/30/19 19:57 Dose: 500 mls/hr Lidocaine HCl (Xylocaine 1%) 50 ml INJECT ONETIME ONE Stop: 11/30/19 19:44 Last Admin: 11/30/19 20:12 Dose: 50 ml Nalbuphine HCl (Nubain) 10 mg IVPUSH Q2H PRN PRN Reason: Pain Sodium Chloride (Saline Flush) 10 ml FLUSH ASDIRECTED PRN PRN Reason: Keep Vein Open - Exam General: Reports: Alert, Oriented HEENT: Reports: Pupils Equal, Pupils Reactive, EOMI, Mucous Membr. Moist/[place] Neck: Reports: Supple Lungs: Reports: Clear to Auscultation, Normal Respiratory Effort Cardiovascular: Reports: Regular Rate, Regular Rhythm GI/Abdominal Exam: Normal Bowel Sounds, Soft, Non-Tender, No Organomegaly, No Distention, No Abnormal Bruit, No Mass, Pelvis Stable Rectal (Female) Exam: Normal Exam, Normal Rectal Tone Back Exam: Reports: Normal Inspection, Full Range of Motion Extremities: Normal Inspection, Normal Range of Motion, Non-Tender, No Pedal Edema, Normal Capillary Refill Skin: Reports: Warm, Dry, Intact Wound/Incisions: Reports: Healing Well Neurological: Reports: No New Focal Deficit Psy/Mental Status: Reports: Alert, Normal Affect, Normal Mood
[2019-12-02] MEDS: Witch Hazel Medicated Pads 40/Jar TOP PRN (10:02)
[2019-12-02 10:47] VITALS: BP 134/89; PULSE 70
== END 2019-12-02 11:40 | disposition home or self-care (01) | DRG 807 ==
LOC: JD.OBCHECK 19:34 → OBSVTOIN 19:39 → JD.OB 19:39 → INTOOBSV 19:39 → UNDOADMOB 19:39
PROVIDERS: ADMIT Obstetrics & Gynecology; ATTEND Obstetrics & Gynecology
PROC: 10E0XZZ Delivery of Products of Conception, External Approach (ICD-10-PCS; principal; 2019-11-30)
DX: O62.3 Precipitate labor (principal); Z37.0 Single live birth; O70.0 First degree perineal laceration during delivery; Z3A.37 37 weeks gestation of pregnancy
CPT/HCPCS: 36415; 59025; 59409; 85025; 86592; A9270-GY; J2001; J2590

== ENCOUNTER 2020-09-22 16:40 | Emergency (ER) | payer OTHER ==
[2020-09-22 16:54] VITALS: BP 129/86; PULSE 62
--- NOTE | 2020-09-22 16:56 | EDM.PDOC ---
ED HPI GENERAL MEDICAL PROBLEM - General Chief Complaint: Chest Pain Stated Complaint: BURNING IN CHEST AND ABDOMEN SINCE SATURDAY Time Seen by Provider: 09/22/20 16:53 - History of Present Illness INITIAL COMMENTS - FREE TEXT/NARRATIVE: 34-year-old female presents the emergency room with abdominal pain and burning. Since about Saturday of this week the patient has developed quite a bit of heartburn and reflux symptoms. She was seen in the clinic on Saturday started on Protonix and Carafate she does better in the mornings but by she is doing worse again. Patient denies any nausea or vomiting and has no diarrhea. Lino chago, she does have firm stools in small amounts. 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 The patient is scheduled for an abdominal CT on Saturday if her symptoms do not improve. Patient denies any fevers or chills no burning or frequency with urination. Abdomen Pain Score (Numeric/FACES): 5 - Related Data Allergies Allergy/AdvReac Type Severity Reaction Status Date / Time No Known Allergies Allergy Verified 11/30/19 21:38 Home Meds: Home Meds Escitalopram Oxalate [Lexapro] 15 mg PO DAILY 11/30/19 [History] [place]-3/DHA/Epa/Fish Oil [Fish Oil 1,000 mg Softgel] 1 each PO DAILY 11/30/19 [History] Pantoprazole Sodium [Protonix] 40 mg PO DAILY 09/22/20 [History] Sucralfate [Carafate] 1 gm PO QIDACANDBED #20 cup 09/22/20 [Rx] Sucralfate [Carafate] 1 gram PO QID 09/22/20 [History] Past Medical History - Past Health History Medical/Surgical History: Denies Medical/Surgical History HEENT History: Reports: Impaired Vision Other HEENT History: wears reading eyeglasses Respiratory History: Reports: Bronchitis, Recurrent Genitourinary History: Reports: UTI, Recurrent [employer] SERVICE [employer]IST History: Reports: , Other (See Below) 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 Neurological History: Reports: Concussion Psychiatric History: Reports: Anxiety Dermatologic History: Reports: Eczema - Infectious Disease History Infectious Disease History: Reports: Chicken Pox - Past Surgical History Female Surgical History: Reports: Section Social & Family History - Family History Family Medical History: No Pertinent Family History - Caffeine Use Caffeine Use: Reports: Coffee, Tea ED ROS GENERAL - Review of Systems Review Of Systems: See Below Constitutional: Reports: No Symptoms HEENT: Reports: No Symptoms Respiratory: Reports: No Symptoms Cardiovascular: Reports: Other (burning in the upper abdomen and into the chest) Endocrine: Reports: No Symptoms (Stomach and esophageal burning) GI/Abdominal: Reports: Abdominal Pain (Burning sensation in the upper abdomen) : Reports: No Symptoms Musculoskeletal: Reports: No Symptoms Skin: Reports: No Symptoms Neurological: Reports: No Symptoms Psychiatric: Reports: No Symptoms ED EXAM, GENERAL - Physical Exam Exam: See Below Exam Limited By: No Limitations General Appearance: Alert, No Apparent Distress Head: Atraumatic, Normocephalic Neck: Normal Inspection, Supple, Non-Tender, Full Range of Motion Respiratory/Chest: No Respiratory Distress, Lungs Clear, Normal Breath Sounds Cardiovascular: Regular Rate, Rhythm, No Edema, No Murmur GI/Abdominal: Normal Bowel Sounds, Soft, Other (He has epigastric discomfort with palpation and some left upper quadrant tenderness with palpation minimal right upper quadrant tenderness with palpation no rigidity rebound or guarding noted) Back Exam: Normal Inspection. No: CVA Tenderness (L), CVA Tenderness (R) Neurological: Alert, Oriented, Normal Cognition Course - Vital Signs Last Recorded V/S: Last Vital Signs Temp 36.2 C 09/22/20 16:49 Pulse 62 09/22/20 16:49 Resp 13 09/22/20 16:49 BP 129/86 09/22/20 16:49 Pulse Ox 100 09/22/20 16:49 - Orders/Labs/Meds Meds: Medications Discontinued Medications Generic Name Dose Route Start Last Admin Trade Name Freq PRN Reason Stop Dose Admin Al Hydroxide/Mg Hydroxide 30 0 ml 09/22/20 17:04 09/22/20 17:10 ml/ Lidocaine HCl 15 ml PO 09/22/20 17:05 45 ml ONETIME ONE Administration - Re-Assessments/Exams Free Text/Narrative Re-Assessment/Exam: 09/22/20 18:18 Patient is doing much better after getting GI cocktail she is symptom-free at this point. KUB was done which shows 2 metallic bodies over her right pelvis but quite a bit of stool in the pelvis as well as well as the right colon. I discussed the findings with the patient recommend she start MiraLAX. The patient is taking her Carafate as directed but it is the tablet form we will change her to the suspension form and see if this helps her. Departure - Departure Time of Disposition: 18:19 Disposition: Home, Self-Care 01 Clinical Impression: GERD (gastroesophageal reflux disease) - Discharge Information Referrals: Daisy Pérez PA-C [Primary Care Provider] - Forms: ED Department Discharge Additional Instructions: Return to the emergency room with any questions problems or worsening symptoms. I have sent a prescription to the clinic pharmacy for the suspension of Carafate use this for another 5 days. Take it immediately before each meal and at bedtime. Take your other medications at least an hour before the Carafate or 2 hours after. As we discussed start MiraLAX. Continue to push lots of vegetables and a high- fiber diet. Also push lots of fluids Sepsis Event Note (ED) - Focused Exam Vital Signs: Vital Signs Temp Pulse Resp BP Pulse Ox 09/22/20 16:49 36.2 C 62 13 129/86 100
[2020-09-22] MEDS ORDERED: Alum Hydrox/Mag Hydrox/Simeth 30 ML, Lidocaine 2% 15 ML PO ONE ×2 (17:04)
--- NOTE | 2020-09-22 18:02 | CR ---
Abdomen: Supine view of the abdomen was obtained. Comparison: No prior abdominal imaging is available. Bowel gas pattern appears within normal limits. Scattered stool is seen within the colon which does not appear to be abnormally increased. Two radiopacities are seen within the pelvis. Bony structures are within normal limits for the patient's age. Incidental note of partial transitional segment at the lumbosacral junction. No abnormal calcifications or soft tissue abnormality is appreciated. Impression: 1. Two opacities overlying the right pelvis. Please correlate as to etiology. 2. Nothing acute is appreciated. Diagnostic code #2
== END 2020-09-22 18:30 | disposition home or self-care (01) ==
LOC: JD.ED 16:40
DX: K21.9 Gastro-esophageal reflux disease without esophagitis (principal); Z79.899 Other long term (current) drug therapy
CPT/HCPCS: 74018; 99284; A9270; 99283

== ENCOUNTER 2024-09-18 00:21 | Emergency (ER) | payer OTHER ==
[2024-09-18] MEDS ORDERED: Sodium Chloride 0.9% 10 ML Syringe FLUSH PRN (00:44)
[2024-09-18] MEDS: Alum Hydrox/Mag Hydrox/Simeth 30 ML, Lidocaine 2% 15 ML PO ONE (00:51)
[2024-09-18] MEDS: Famotidine 20 MG Tab PO ONE (00:51)
[2024-09-18] MEDS: Sodium Chloride 0.9% 1,000 ML IV ONE (01:02)
[2024-09-18 01:19] LABS: BASOPHILS ABSOLUTE AUTO 0.1 K/mm3 (0.0-0.2); BASOPHILS PERCENT AUTO 0.7 % (0.0-1.0); EOSINOPHILS ABSOLUTE AUTO 0.1 K/mm3 (0.0-0.4); EOSINOPHILS PERCENT AUTO 0.7 % (0.0-6.0); HEMATOCRIT 41.7 % (37.0-47.0); HEMOGLOBIN 13.8 gm/dl (12.0-16.0); IMMATURE GRAN ABSOLUTE AUTO 0.01 K/mm3 (0.00-0.05); IMMATURE GRAN PERCENT AUTO 0.1 % (0.0-0.4); LYMPHOCYTES PERCENT AUTO 35.4 % (24.0-44.0); MEAN CORPUSCULAR HEMOGLOBIN 29.1 pg (28.0-32.0); MEAN CORPUSCULAR HGB CONC 33.1 g/dl (32.0-36.0); MEAN CORPUSCULAR VOLUME 87.8 fl (83.0-99.0); MEAN PLATELET VOLUME 11.9 fl (9.4-12.3); MONOCYTES ABSOLUTE AUTO 0.5 K/mm3 (0.0-0.8); MONOCYTES PERCENT AUTO 5.9 % (0.0-8.0); NEUTROPHILS ABSOLUTE AUTO 4.9 K/mm3 (1.8-7.7); NEUTROPHILS PERCENT AUTO 57.2 % (41.0-71.0); PLATELET COUNT,PLT 265 K/mm3 (150-400); RED BLOOD CELL COUNT 4.75 M/mm3 (4.10-5.30); WHITE BLOOD CELL COUNT,WBC 8.59 K/mm3 (3.9-11.3)
[2024-09-18 01:29] LABS: A/G RATIO 1.1 (1-2); ALBUMIN 3.8 g/dl (3.4-5.0); ANION GAP 13.7 (5-15); BILIRUBIN TOTAL 0.3 mg/dL (0.2-1.0); EST CRCL DRUG DOSING (CG) 90.79 mL/min; POTASSIUM,K 3.7 mEq/L (3.5-5.1); PROTEIN TOTAL,TP 7.3 g/dl (6.4-8.2)
[2024-09-18] MEDS: Iopamidol 612 MG/ML 100 ML Bottle IVPUSH ONE (01:57)
[2024-09-18] MEDS: Aspirin 81 MG Tab.Chew PO ONE (02:17)
[2024-09-18] MEDS: Heparin Sodium 5,000 Units/ML Vial IVPUSH ONE (02:31)
[2024-09-18] MEDS: Heparin Sodium/D5W 250 ML IV SCH (02:34)
[2024-09-18] MEDS: fentaNYL 100 MCG/2 ML SDV IVPUSH ONE ×2 (02:35→04:15)
[2024-09-18 03:09] LABS: INR 1.03; PROTHROMBIN TIME 10.9 SECONDS (9.7-12.0)
[2024-09-18 03:10] LABS: PTT,PARTIAL THROMBOPLSTIN TIME 27.8 SECONDS (21.7-31.4)
[2024-09-18] MEDS: LORazepam 2 MG/ML SDV IVPUSH ONE ×2 (04:17→04:25)
[2024-09-18 05:19] VITALS: BP 125/73; PULSE 72
[2024-09-23] MEDS ORDERED: Heparin Sodium 5,000 Units/ML Vial IVPUSH ONE (10:01)
[2024-09-23] MEDS ORDERED: Sodium Chloride 0.9% 1,000 ML IV SCH (10:15)
[2024-09-23] MEDS ORDERED: Heparin Sodium/D5W 250 ML IV SCH (10:15)
== END 2024-09-18 04:27 ==
LOC: JD.ED 00:21
DX: I21.4 Non-ST elevation (NSTEMI) myocardial infarction (principal); Z86.16 Personal history of COVID-19; Z79.899 Other long term (current) drug therapy
CPT/HCPCS: 36415; 71275; 80053; 83690; 84484; 84703; 85025; 85610; 85730; 93005; 96361; 96365; 96366; 96375; 96376; 99285; A9270; J1644; J2060; J3010; J7030; Q9967

== ENCOUNTER 2024-09-23 09:39 | Emergency (ER) | payer OTHER ==
[2024-09-23 09:47] VITALS: BP 123/84; PULSE 87
[2024-09-23] MEDS ORDERED: Sodium Chloride 0.9% 10 ML Syringe FLUSH PRN (10:11)
[2024-09-23] MEDS: Aspirin 81 MG Tab.Chew PO ONE (10:20)
[2024-09-23] MEDS: Heparin Sodium 5,000 Units/ML Vial IVPUSH ONE (10:20)
[2024-09-23] MEDS: Heparin Sodium/D5W 250 ML IV SCH (10:21)
[2024-09-23 10:39] LABS: BASOPHILS PERCENT AUTO 0.4 % (0.0-1.0); EOSINOPHILS ABSOLUTE AUTO 0.1 K/mm3 (0.0-0.4); EOSINOPHILS PERCENT AUTO 0.9 % (0.0-6.0); HEMATOCRIT 42.2 % (37.0-47.0); HEMOGLOBIN 13.9 gm/dl (12.0-16.0); IMMATURE GRAN ABSOLUTE AUTO 0.04 K/mm3 (0.00-0.05); IMMATURE GRAN PERCENT AUTO 0.5 % (0.0-0.4); LYMPHOCYTES ABSOLUTE AUTO 2.1 K/mm3 (1.0-4.8); LYMPHOCYTES PERCENT AUTO 26.1 % (24.0-44.0); MEAN CORPUSCULAR HEMOGLOBIN 28.8 pg (28.0-32.0); MEAN CORPUSCULAR HGB CONC 32.9 g/dl (32.0-36.0); MEAN CORPUSCULAR VOLUME 87.4 fl (83.0-99.0); MEAN PLATELET VOLUME 11.5 fl (9.4-12.3); MONOCYTES ABSOLUTE AUTO 0.6 K/mm3 (0.0-0.8); MONOCYTES PERCENT AUTO 7.4 % (0.0-8.0); NEUTROPHILS ABSOLUTE AUTO 5.3 K/mm3 (1.8-7.7); NEUTROPHILS PERCENT AUTO 64.7 % (41.0-71.0); PLATELET COUNT,PLT 245 K/mm3 (150-400); RED BLOOD CELL COUNT 4.83 M/mm3 (4.10-5.30); WHITE BLOOD CELL COUNT,WBC 8.16 K/mm3 (3.9-11.3)
[2024-09-23 10:46] LABS: A/G RATIO 0.9 (1-2); ALBUMIN 3.6 g/dl (3.4-5.0); BILIRUBIN TOTAL 0.7 mg/dL (0.2-1.0); CALCIUM 9.1 mg/dL (8.5-10.1); EST CRCL DRUG DOSING (CG) 90.79 mL/min; INR 1.04; PROTEIN TOTAL,TP 7.8 g/dl (6.4-8.2)
[2024-09-23 10:48] LABS: PTT,PARTIAL THROMBOPLSTIN TIME 26.2 SECONDS (21.7-31.4)
[2024-09-23] MEDS: Sodium Chloride 0.9% 1,000 ML IV ONE (10:58)
== END 2024-09-23 11:55 ==
LOC: JD.ED 09:39
DX: I21.4 Non-ST elevation (NSTEMI) myocardial infarction (principal); I25.42 Coronary artery dissection; Z86.16 Personal history of COVID-19; Z79.899 Other long term (current) drug therapy
CPT/HCPCS: 36415; 71045; 80053; 84484; 85025; 85610; 85730; 93005; 96365; 96366; 99285; A9270; J1644; J7030

== ENCOUNTER 2024-09-25 14:41 | Emergency (ER) | payer OTHER ==
[2024-09-25] MEDS ORDERED: Sodium Chloride 0.9% 10 ML Syringe FLUSH PRN (14:46)
[2024-09-25] MEDS: Sodium Chloride 0.9% 10 ML Syringe FLUSH ONE (15:07)
[2024-09-25] MEDS: Sodium Chloride 0.9% 100 ML IV SCH (15:07)
[2024-09-25] MEDS: Iopamidol 755 Mg/ML 100 ML Bottle IVPUSH ONE (15:07)
[2024-09-25 15:37] LABS: BASOPHILS PERCENT AUTO 0.6 % (0.0-1.0); EOSINOPHILS ABSOLUTE AUTO 0.1 K/mm3 (0.0-0.4); EOSINOPHILS PERCENT AUTO 1.3 % (0.0-6.0); HEMOGLOBIN 12.2 gm/dl (12.0-16.0); IMMATURE GRAN ABSOLUTE AUTO 0.04 K/mm3 (0.00-0.05); IMMATURE GRAN PERCENT AUTO 0.6 % (0.0-0.4); LYMPHOCYTES ABSOLUTE AUTO 2.4 K/mm3 (1.0-4.8); LYMPHOCYTES PERCENT AUTO 33.9 % (24.0-44.0); MEAN CORPUSCULAR HEMOGLOBIN 28.8 pg (28.0-32.0); MEAN CORPUSCULAR VOLUME 87.5 fl (83.0-99.0); MEAN PLATELET VOLUME 11.6 fl (9.4-12.3); MONOCYTES ABSOLUTE AUTO 0.4 K/mm3 (0.0-0.8); MONOCYTES PERCENT AUTO 6.2 % (0.0-8.0); NEUTROPHILS PERCENT AUTO 57.4 % (41.0-71.0); PLATELET COUNT,PLT 241 K/mm3 (150-400); RED BLOOD CELL COUNT 4.23 M/mm3 (4.10-5.30); WHITE BLOOD CELL COUNT,WBC 6.99 K/mm3 (3.9-11.3)
[2024-09-25 15:44] LABS: INR 1.06; PROTHROMBIN TIME 11.2 SECONDS (9.7-12.0)
[2024-09-25 15:46] LABS: PTT,PARTIAL THROMBOPLSTIN TIME 23.8 SECONDS (21.7-31.4)
[2024-09-25 15:57] LABS: A/G RATIO 0.9 (1-2); ANION GAP 14.1 (5-15); BILIRUBIN TOTAL 0.3 mg/dL (0.2-1.0); CALCIUM 8.3 mg/dL (8.5-10.1); EST CRCL DRUG DOSING (CG) 90.79 mL/min; MAGNESIUM 2.1 mg/dL (1.8-2.4); POTASSIUM,K 4.1 mEq/L (3.5-5.1); PROTEIN TOTAL,TP 6.5 g/dl (6.4-8.2)
[2024-09-25 16:03] LABS: D-DIMER QUANTITATIVE 4.7 mg/L (0.19-0.50)
[2024-09-25] MEDS: Sodium Chloride 0.9% 1,000 ML IV ONE (16:25)
[2024-09-25] MEDS: Heparin Sodium 5,000 Units/ML Vial IVPUSH ONE (18:13)
[2024-09-25] MEDS: Heparin Sodium/D5W 250 ML IV SCH (18:19)
[2024-09-25] MEDS: Amiodarone 150 MG/100 ML 100 ML IV ONE (18:27)
[2024-09-25] MEDS: Amiodarone 360 MG/200 ML 360 MG/200 ML BAG IV ONE (18:48)
[2024-09-25 19:44] VITALS: BP 99/85; PULSE 110
== END 2024-09-25 19:10 ==
LOC: JD.ED 14:41
DX: S09.90XA Unspecified injury of head, initial encounter (principal); R55 Syncope and collapse; R07.9 Chest pain, unspecified; R79.89 Other specified abnormal findings of blood chemistry; R00.0 Tachycardia, unspecified; K21.9 Gastro-esophageal reflux disease without esophagitis; E78.00 Pure hypercholesterolemia, unspecified; Z79.82 Long term (current) use of aspirin; Z79.899 Other long term (current) drug therapy; Z86.16 Personal history of COVID-19; W22.8XXA Striking against or struck by other objects, initial encounter
CPT/HCPCS: 36415; 70450; 71275; 80053; 83735; 84484; 85025; 85379; 85610; 85730; 93005; 96361; 96365; 96368; 99285; J0282; J1644; J7030; Q9967

== ENCOUNTER 2024-12-05 16:44 | Emergency (ER) | payer OTHER ==
[2024-12-05] MEDS ORDERED: Sodium Chloride 0.9% 10 ML Syringe FLUSH PRN (17:04)
[2024-12-05] MEDS: Famotidine 20 MG Tab PO ONE (17:20)
[2024-12-05] MEDS: Alum Hydrox/Mag Hydrox/Simeth 30 ML, Lidocaine 2% 15 ML PO ONE (17:20)
[2024-12-05 17:25] LABS: BASOPHILS PERCENT AUTO 0.6 % (0.0-1.0); EOSINOPHILS ABSOLUTE AUTO 0.1 K/mm3 (0.0-0.4); EOSINOPHILS PERCENT AUTO 0.9 % (0.0-6.0); HEMATOCRIT 39.2 % (37.0-47.0); HEMOGLOBIN 12.6 gm/dl (12.0-16.0); IMMATURE GRAN ABSOLUTE AUTO 0.02 K/mm3 (0.00-0.05); IMMATURE GRAN PERCENT AUTO 0.3 % (0.0-0.4); LYMPHOCYTES ABSOLUTE AUTO 1.9 K/mm3 (1.0-4.8); LYMPHOCYTES PERCENT AUTO 27.6 % (24.0-44.0); MEAN CORPUSCULAR HEMOGLOBIN 28.3 pg (28.0-32.0); MEAN CORPUSCULAR HGB CONC 32.1 g/dl (32.0-36.0); MEAN CORPUSCULAR VOLUME 88.1 fl (83.0-99.0); MEAN PLATELET VOLUME 11.6 fl (9.4-12.3); MONOCYTES ABSOLUTE AUTO 0.6 K/mm3 (0.0-0.8); MONOCYTES PERCENT AUTO 8.5 % (0.0-8.0); NEUTROPHILS ABSOLUTE AUTO 4.3 K/mm3 (1.8-7.7); NEUTROPHILS PERCENT AUTO 62.1 % (41.0-71.0); PLATELET COUNT,PLT 256 K/mm3 (150-400); RED BLOOD CELL COUNT 4.45 M/mm3 (4.10-5.30); WHITE BLOOD CELL COUNT,WBC 6.85 K/mm3 (3.9-11.3)
[2024-12-05 17:43] LABS: ALBUMIN 3.5 g/dl (3.4-5.0); ANION GAP 11.7 (5-15); BILIRUBIN TOTAL 0.4 mg/dL (0.2-1.0); CALCIUM 8.9 mg/dL (8.5-10.1); EST CRCL DRUG DOSING (CG) 89.9 mL/min; POTASSIUM,K 3.7 mEq/L (3.5-5.1); PROTEIN TOTAL,TP 6.9 g/dl (6.4-8.2)
[2024-12-06 02:48] VITALS: BP 91/54; PULSE 64
== END 2024-12-06 02:47 | disposition home or self-care (01) ==
LOC: JD.ED 16:44
DX: R07.9 Chest pain, unspecified (principal); Z79.899 Other long term (current) drug therapy
CPT/HCPCS: 36415; 71045; 80053; 83690; 84484; 84703; 85025; 93005; 99285; A9270

== ENCOUNTER 2025-02-05 16:16 | Emergency (ER) | payer OTHER ==
[2025-02-05 16:26] VITALS: BP 119/75; PULSE 58
[2025-02-05] MEDS ORDERED: Sodium Chloride 0.9% 10 ML Syringe FLUSH PRN (16:30)
[2025-02-05 16:43] LABS: BASOPHILS PERCENT AUTO 0.6 % (0.0-1.0); EOSINOPHILS ABSOLUTE AUTO 0.1 K/mm3 (0.0-0.4); EOSINOPHILS PERCENT AUTO 1.6 % (0.0-6.0); HEMATOCRIT 37.4 % (37.0-47.0); HEMOGLOBIN 11.9 gm/dl (12.0-16.0); IMMATURE GRAN ABSOLUTE AUTO 0.01 K/mm3 (0.00-0.05); IMMATURE GRAN PERCENT AUTO 0.2 % (0.0-0.4); LYMPHOCYTES ABSOLUTE AUTO 2.6 K/mm3 (1.0-4.8); LYMPHOCYTES PERCENT AUTO 40.5 % (24.0-44.0); MEAN CORPUSCULAR HGB CONC 31.8 g/dl (32.0-36.0); MEAN CORPUSCULAR VOLUME 84.8 fl (83.0-99.0); MEAN PLATELET VOLUME 11.2 fl (9.4-12.3); MONOCYTES ABSOLUTE AUTO 0.4 K/mm3 (0.0-0.8); MONOCYTES PERCENT AUTO 6.3 % (0.0-8.0); NEUTROPHILS ABSOLUTE AUTO 3.2 K/mm3 (1.8-7.7); NEUTROPHILS PERCENT AUTO 50.8 % (41.0-71.0); PLATELET COUNT,PLT 235 K/mm3 (150-400); RED BLOOD CELL COUNT 4.41 M/mm3 (4.10-5.30)
[2025-02-05 17:04] LABS: ALBUMIN 3.6 g/dl (3.4-5.0); ANION GAP 13.6 (5-15); BILIRUBIN TOTAL 0.2 mg/dL (0.2-1.0); EST CRCL DRUG DOSING (CG) 89.9 mL/min; MAGNESIUM 2.2 mg/dL (1.8-2.4); POTASSIUM,K 3.6 mEq/L (3.5-5.1); PROTEIN TOTAL,TP 7.2 g/dl (6.4-8.2)
== END 2025-02-05 20:16 | disposition home or self-care (01) ==
LOC: JD.ED 16:16
DX: R07.9 Chest pain, unspecified (principal); E78.00 Pure hypercholesterolemia, unspecified; K21.9 Gastro-esophageal reflux disease without esophagitis; Z79.899 Other long term (current) drug therapy; Z79.84 Long term (current) use of oral hypoglycemic drugs
CPT/HCPCS: 36415; 71045; 71045-26; 80053; 83735; 84484; 85025; 93005; 99285

== ENCOUNTER 2025-06-22 13:27 | Emergency (ER) | payer OTHER ==
[2025-06-22] MEDS ORDERED: Sodium Chloride 0.9% 10 ML Syringe FLUSH PRN (14:02)
[2025-06-22 14:12] LABS: BASOPHILS ABSOLUTE AUTO 0.1 K/mm3 (0.0-0.2); BASOPHILS PERCENT AUTO 0.4 % (0.0-1.0); EOSINOPHILS ABSOLUTE AUTO 0.1 K/mm3 (0.0-0.4); EOSINOPHILS PERCENT AUTO 0.5 % (0.0-6.0); IMMATURE GRAN ABSOLUTE AUTO 0.05 K/mm3 (0.00-0.05); IMMATURE GRAN PERCENT AUTO 0.4 % (0.0-0.4); LYMPHOCYTES ABSOLUTE AUTO 2.4 K/mm3 (1.0-4.8); LYMPHOCYTES PERCENT AUTO 19.3 % (24.0-44.0); MEAN PLATELET VOLUME 11.1 fl (9.4-12.3); MONOCYTES ABSOLUTE AUTO 0.7 K/mm3 (0.0-0.8); MONOCYTES PERCENT AUTO 5.1 % (0.0-8.0); NEUTROPHILS ABSOLUTE AUTO 9.4 K/mm3 (1.8-7.7); NEUTROPHILS PERCENT AUTO 74.3 % (41.0-71.0); NRBC ABSOLUTE 0.00 (0.00-0.02); NRBC PERCENT 0.0 % (0.0-0.2); PLATELET COUNT,PLT 252 K/mm3 (150-400); RED BLOOD CELL COUNT 4.56 M/mm3 (4.10-5.30); WHITE BLOOD CELL COUNT,WBC 12.65 K/mm3 (3.9-11.3)
[2025-06-22 14:34] LABS: A/G RATIO 1.1 (1-2); ALANINE AMINOTRANSFERASE,ALT 16.0 U/L (14-59); ASPARTATE AMNIOTRANSFERASE,AST 20.0 U/L (15-37); BILIRUBIN TOTAL 0.3 mg/dL (0.2-1.0); BLOOD UREA NITROGEN,BUN 18.0 mg/dL (7-18); CARBON DIOXIDE,CO2 25.0 mEq/L (21-32); CHLORIDE,CL 105.0 mEq/L (98-107); CREATININE 1.3 mg/dL (0.55-1.02); EST CRCL DRUG DOSING (CG) 69.16 mL/min; ESTIMATED GFR 54.0 mL/min (>60); GLUCOSE RANDOM 125.0 mg/dL (70-99); POTASSIUM,K 3.3 mEq/L (3.5-5.1); PROTEIN TOTAL,TP 7.2 g/dl (6.4-8.2); SODIUM,NA 142.0 mEq/L (136-145); TROPONIN I HIGH SENSITIVITY 33.0 pg/mL (<=51)
[2025-06-22] MEDS: Sodium Chloride 0.9% 10 ML Syringe FLUSH ONE (15:08)
[2025-06-22] MEDS: Iopamidol 755 Mg/ML 100 ML Bottle IVPUSH ONE (15:09)
[2025-06-22 19:19] VITALS: BP 116/59; PULSE 82
== END 2025-06-22 19:02 | disposition home or self-care (01) ==
LOC: JD.ED 13:27
DX: R07.9 Chest pain, unspecified (principal); E78.00 Pure hypercholesterolemia, unspecified; K21.9 Gastro-esophageal reflux disease without esophagitis; Z95.5 Presence of coronary angioplasty implant and graft; Z79.899 Other long term (current) drug therapy; Z79.82 Long term (current) use of aspirin
CPT/HCPCS: 36415; 71045; 71275; 80053; 83690; 84484; 84703; 85025; 93005; 96360; 99285; J7030; Q9967; 93010; 99284